=== PATIENT | female | born 1960 | race Caucasian/White ===

== ENCOUNTER 2017-07-20 08:20 | Emergency (ER) | payer OTHER ==
[~2017-07-20 08:20] MED LIST: ANT25 PO; CITA20TA9 PO; HYG/25 PO; LEVO150T48 PO; METO100T44 PO; ONDA4TAB7 SL; SPIR25TA PO
[2017-07-20 08:34] VITALS: O2SAT 97
[2017-07-20] MEDS ORDERED: SUCRALFATE 1 GM TAB PO STA (08:47)
[2017-07-20] MEDS ORDERED: GI COCKTAIL PO STA (08:47)
[2017-07-20] MEDS ORDERED: FAMOTIDINE 20 MG TAB PO STA (08:47)
[2017-07-20 09:02] LABS: BASO % 0.9 %; BASO ABS # 0.07 K/uL (0-0.2); EOS % 4.3 %; EOS ABS # 0.32 K/uL (0-0.5); HEMATOCRIT 40.2 % (37-47); HEMOGLOBIN 13.9 g/dL (12.0-16.0); IG# 0.04 K/uL (0.00-0.02); LYMPH % 28.7 %; LYMPH ABS # 2.12 K/uL (1.2-3.4); MEAN CELL VOLUME 88.9 fL (80-100); MEAN CORPUSCULAR HEMOGLOBIN 30.8 pg (25-34); MEAN CORPUSCULAR HGB CONC 34.6 g/dl (32-36); MEAN PLATELET VOLUME 9.7 fL (7.4-10.4); MONO % 7.8 %; MONO ABS # 0.58 K/uL (0.11-0.59); NEUT % 57.8 %; NEUT ABS # 4.26 K/uL (1.4-6.5); PLATELET COUNT 247 K/uL (130-400); RED CELL DISTRIBUTION WIDTH CV 12.9 % (11.5-14.5); RED CELL DISTRIBUTION WIDTH SD 41.6 fL (36.4-46.3); WHITE BLOOD COUNT 7.39 K/uL (4.8-10.8)
[2017-07-20] MEDS ORDERED: ALUMINUM/MAGNESIUM SUSP 30 ML UDC ONE (09:07)
[2017-07-20] MEDS ORDERED: LIDOCAINE HCL 2% VISC SOLN 20 ML UDC ONE (09:07)
[2017-07-20 09:09] LABS: ISTAT CREATININE 1.3 mg/dl (0.6-1.3); ISTAT IONIZED CALCIUM 1.11 mmol/l (1.12-1.32); ISTAT POTASSIUM 3.1 mEq/L (3.3-5.0)
[2017-07-20 09:13] LABS: ALBUMIN 3.4 gm/dl (3.4-5.0); ALT/SGPT 22 U/L (12-78); BLOOD UREA NITROGEN 18 mg/dl (7-18); CALCIUM 8.8 mg/dl (8.5-10.1); CARBON DIOXIDE 30 mmol/L (21-32); CREATININE 1.26 mg/dl (0.60-1.20); GLUCOSE 103 mg/dl (70-99); LIPASE 199 U/L (73-393); POTASSIUM 3.1 mmol/L (3.5-5.1); SODIUM 138 mmol/L (136-145)
--- NOTE | 2017-07-20 09:14 | DIAGNOSTIC IMAGING REPORT ---
CHEST ONE VIEW PORTABLE CLINICAL HISTORY: CHEST PAIN pain COMPARISON STUDY: 09/02/2014 FINDINGS: Permanent bipolar cardiac pacemaker in good position. Diaphragms smooth. Lungs are clear. IMPRESSION: No acute process. The above report was generated using voice recognition software. It may contain grammatical, syntax or spelling errors. Electronically signed by: Edmundo Lopez M.D. 07/20/2017 9:13 AM Dictated Date/Time: 07/20/2017 9:12 AM
[2017-07-20] MEDS ORDERED: SODIUM CHLORIDE 0.9% 500ML 500 ML IV STA (09:17)
[2017-07-20 09:21] LABS: ALKALINE PHOSPHATASE 89 U/L (45-117); AST/SGOT 17 U/L (15-37); TOTAL PROTEIN 7.6 gm/dl (6.4-8.2)
--- NOTE | 2017-07-20 09:24 | EMERGENCY ROOM VISIT NOTE ---
History Report prepared by Lemuel: Judith Gupta Under the Supervision of: Dr. Erik Urias M.D. First contact with patient: 08:37 Chief Complaint: CHEST PAIN Stated Complaint: LEFT ARM PAIN, CHEST PRESSURE Nursing Triage Summary: pt reports left sided chest "heaviness" started at approx 0630 today. pt reports hx of pace maker. History of Present Illness The patient is a 56 year old female who presents to the Emergency Room with complaints of constant chest pain beginning this morning. The patient states that she was just sitting on the edge of the bed when her symptoms began. She felt a warm tingling sensation throughout her body. She reports a "heavy" feeling in her chest and left arm. She states that her arm felt tired. She rates her pain as a 4/10 in severity. The patient is also experiencing nausea. The patient has a pacemaker in place. She follows up with Dr. Klein of cardiology and last saw him about 3 months ago. She had her pacemaker evaluated last week. The patient had a stress test in 2012 and has previously had a cardiac catheterization but cannot remember what year. She did not have any stents placed at that time. The patient denies any abdominal pain. She last ate at 8pm yesterday evening. She does report falling 3 days ago and states that she landed on her left shoulder at that time. Source of History: patient Onset: this morning Position: chest Symptom Intensity: 4/10 Quality: other (heavy) Timing: constant Associated Symptoms: + nausea, No abdominal pain Review of Systems See HPI for pertinent positives & negatives. A total of 10 systems reviewed and were otherwise negative. Past Medical & Surgical Medical Problems: (1) Cardiac Dysrhythmias Nec (2) Cardiac Pacemaker In Situ (3) HTN (hypertension) (4) Kidney stones Surgical Problems: (1) H/O tubal ligation (2) History of cholecystectomy Family History Heart disease Social History Smoking Status: Never Smoker Alcohol Use: occasionally Marital Status: Housing Status: lives with family Occupation Status: unemployed Current/Historical Medications Scheduled Chlorthalidone (Hygroton), 25 MG PO QAM Citalopram Hydrobromide (Celexa), 20 MG PO DAILY Levothyroxine Sodium (Levothyroxine Sodium), 1 TAB PO DAILY Metoprolol Succ (Toprol Xl) (Toprol-Xl ), 100 MG PO DAILY Spironolactone (Aldactone), 25 MG PO DAILY Scheduled PRN Meclizine HCl (Meclizine HCl), 1 TAB PO Q8 PRN for Dizziness or Vertigo Allergies Coded Allergies: No Known Allergies (Unverified , 07/20/17) Physical Exam Vital Signs Date Time Temp Pulse Resp B/P (MAP) Pulse Ox O2 Delivery O2 Flow Rate FiO2 07/20/17 11:52 36.6 64 18 115/55 99 07/20/17 11:49 64 18 115/55 99 Room Air 07/20/17 10:27 64 18 115/53 99 Room Air 07/20/17 08:59 69 20 158/93 96 Room Air 07/20/17 08:37 69 07/20/17 08:34 97 Room Air 07/20/17 08:33 97 07/20/17 08:23 36.6 72 20 143/88 96 Room Air Physical Exam GENERAL: Awake, alert, well-appearing, in no acute distress HENT: Normocephalic, atraumatic. Oropharynx unremarkable. EYES: Normal conjunctiva. Sclera non-icteric. NECK: Supple. No nuchal rigidity. FROM. No JVD. RESPIRATORY: Clear to auscultation. CARDIAC: Regular rate, normal rhythm. Extremities warm and well perfused. Pulses equal. CHEST: Pacemaker in left chest wall. ABDOMEN: Soft, non-distended. No tenderness to palpation. No rebound or guarding. No masses. RECTAL: Deferred. MUSCULOSKELETAL: Chest examination reveals no tenderness. The back is symmetrical on inspection without obvious abnormality. There is no CVA tenderness to palpation. No joint edema. Tenderness in left shoulder area, good ROM of shoulder. LOWER EXTREMITIES: Calves are equal size bilaterally and non-tender. No edema. No discoloration. NEURO: Normal sensorium. No sensory or motor deficits noted. SKIN: No rash or jaundice noted. Medical Decision & Procedures ER Provider Diagnostic Interpretation: Radiology results as stated below per my review and radiologist interpretation: CHEST ONE VIEW PORTABLE CLINICAL HISTORY: CHEST PAIN pain COMPARISON STUDY: 09/02/2014 FINDINGS: Permanent bipolar cardiac pacemaker in good position. Diaphragms smooth. Lungs are clear. IMPRESSION: No acute process. The above report was generated using voice recognition software. It may contain grammatical, syntax or spelling errors. Electronically signed by: Edmundo Lopez M.D. 07/20/2017 9:13 AM Dictated Date/Time: 07/20/2017 9:12 AM LEFT SHOULDER 3 VIEWS HISTORY: Pt c/o left shoulder pain COMPARISON: None. FINDINGS: Left-sided pacemaker obscures some of the left shoulder. No definite fracture or dislocation within the left shoulder. The left clavicle appears intact. Soft tissues are unremarkable. Mild AC joint arthrosis. IMPRESSION: 1. No fracture or dislocation within the left shoulder. 2. Mild AC joint arthrosis. Electronically signed by: Brandon Sosa M.D. 07/20/2017 10:07 AM Dictated Date/Time: 07/20/2017 10:06 AM (CHEST FOR PE) ANGIO WITH CT DOSE: 594.40 mGy.cm HISTORY: Chest pain dyspnea TECHNIQUE: Multiaxial CT images of the chest were performed following the intravenous administration of contrast to evaluate the pulmonary arteries. Maximal intensity projection images were also obtained. A dose lowering technique was utilized adhering to the principles of ALARA. COMPARISON STUDY: 07/16/2012 FINDINGS: This study again is compromised due to body habitus limitations. No evidence for a major central pulmonary embolus. Second-order vessels appear unremarkable. No evidence for aneurysmal dilatation of the thoracic aorta. Minimal atelectatic change right lung base. Lungs otherwise appear clear. Bipolar cardiac pacemaker leads are evident. Small hiatal hernia. Degenerative change of the thoracic spine throughout. No evidence for compression deformity. IMPRESSION: 1. Compromised exam due to body habitus considerations. 2. No evidence for a central or major pulmonary embolus. 3. Lungs are considered clear. Minimal right basilar atelectasis. 4. Small hiatal hernia. 5. Degenerative disc change throughout the entire thoracic region with no evidence for compression deformity. The above report was generated using voice recognition software. It may contain grammatical, syntax or spelling errors. Electronically signed by: Edmundo Lopez M.D. 07/20/2017 10:28 AM Dictated Date/Time: 07/20/2017 10:24 AM Laboratory Results 07/20/17 08:35 Red Blood Count 4.52, Mean Corpuscular Volume 88.9, Mean Corpuscular Hemoglobin 30.8, Mean Corpuscular Hemoglobin Concent 34.6, Mean Platelet Volume 9.7, Neutrophils (%) (Auto) 57.8, Lymphocytes (%) (Auto) 28.7, Monocytes (%) (Auto) 7.8, Eosinophils (%) (Auto) 4.3, Basophils (%) (Auto) 0.9, Neutrophils # (Auto) 4.26, Lymphocytes # (Auto) 2.12, Monocytes # (Auto) 0.58, Eosinophils # (Auto) 0.32, Basophils # (Auto) 0.07 07/20/17 08:35 Test 07/20/17 08:35 07/20/17 08:55 07/20/17 08:59 07/20/17 10:38 White Blood Count 7.39 K/uL (4.8-10.8) Red Blood Count 4.52 M/uL (4.2-5.4) Hemoglobin 13.9 g/dL (12.0-16.0) Hematocrit 40.2 % (37-47) Mean Corpuscular Volume 88.9 fL (80-100) Mean Corpuscular Hemoglobin 30.8 pg (25-34) Mean Corpuscular Hemoglobin Concent 34.6 g/dl (32-36) Platelet Count 247 K/uL (130-400) Mean Platelet Volume 9.7 fL (7.4-10.4) Neutrophils (%) (Auto) 57.8 % Lymphocytes (%) (Auto) 28.7 % Monocytes (%) (Auto) 7.8 % Eosinophils (%) (Auto) 4.3 % Basophils (%) (Auto) 0.9 % Neutrophils # (Auto) 4.26 K/uL (1.4-6.5) Lymphocytes # (Auto) 2.12 K/uL (1.2-3.4) Monocytes # (Auto) 0.58 K/uL (0.11-0.59) Eosinophils # (Auto) 0.32 K/uL (0-0.5) Basophils # (Auto) 0.07 K/uL (0-0.2) RDW Standard Deviation 41.6 fL (36.4-46.3) RDW Coefficient of Variation 12.9 % (11.5-14.5) Immature Granulocyte % (Auto) 0.5 % Immature Granulocyte # (Auto) 0.04 K/uL (0.00-0.02) Estimated GFR () 54.8 Estimated GFR (Non- 47.3 BUN/Creatinine Ratio 14.4 (10-20) Calcium Level 8.8 mg/dl (8.5-10.1) Total Bilirubin 0.4 mg/dl (0.2-1) Direct Bilirubin 0.1 mg/dl (0-0.2) Aspartate Amino Transf (AST/SGOT) 17 U/L (15-37) Alanine Aminotransferase (ALT/SGPT) 22 U/L (12-78) Alkaline Phosphatase 89 U/L (45-117) Total Creatine Kinase 176 U/L (26-192) Creatine Kinase MB 1.0 ng/ml (0.5-3.6) Creatine Kinase MB Ratio 0.6 (0-3.0) Troponin I < 0.015 ng/ml (0-0.045) Total Protein 7.6 gm/dl (6.4-8.2) Albumin 3.4 gm/dl (3.4-5.0) Lipase 199 U/L (73-393) Bedside Hemoglobin 13.9 g/dl (12.0-16.0) Bedside Hematocrit 41 % (37-47) Bedside Sodium 141 mEq/L (135-144) Bedside Potassium 3.1 mEq/L (3.3-5.0) Bedside Chloride 99 mEq/L (101-112) Bedside Total CO2 30 mEq/l (24-31) Anion Gap 16.0 mmol/L (16-25) Bedside Blood Urea Nitrogen 20 mg/dl (7-18) Bedside Creatinine 1.3 mg/dl (0.6-1.3) Bedside Glucose (other) 105 mg/dl (70-99) Bedside Ionized Calcium (Krunal) 1.11 mmol/l (1.12-1.32) Bedside D-Dimer > 450 ng/mlFEU (0-450) Bedside Troponin I < 0.030 ng/ml (0-0.045) Labs reviewed by ED physician. Medications Administered Medications (Trade) Dose Ordered Sig/Cyndi Route Start Time Stop Time Status Last Admin Dose Admin Famotidine (Pepcid Tab) 20 mg NOW STAT PO 07/20/17 08:47 07/20/17 08:51 DC 07/20/17 09:09 20 MG Sucralfate (Carafate Tab) 1 gm NOW STAT PO 07/20/17 08:47 07/20/17 08:51 DC 07/20/17 09:09 1 GM Al Hydroxide/Mg Hydroxide (Maalox Susp) 30 ml STK-MED ONCE .ROUTE 07/20/17 09:07 07/20/17 09:08 DC 07/20/17 09:09 30 ML Lidocaine HCl (Viscous Lidocaine 2% Soln) 20 ml STK-MED ONCE .ROUTE 07/20/17 09:07 07/20/17 09:08 DC 07/20/17 09:09 10 ML Sodium Chloride 500 ml @ 999 mls/hr Q31M STAT IV 07/20/17 09:17 07/20/17 09:47 DC 07/20/17 09:26 999 MLS/HR Potassium Chloride (Klor-Con Tab) 40 meq NOW STAT PO 07/20/17 09:35 07/20/17 09:36 DC 07/20/17 10:01 40 MEQ Potassium Chloride (Klor-Con M10) 40 meq STK-MED ONCE .ROUTE 07/20/17 11:27 07/20/17 11:28 DC 07/20/17 11:33 40 MEQ ECG Per My Interpretation Indication: chest pain Rate (beats per minute): 66 Rhythm: other (paced rhythm) Findings: other (no ST elevation; no ST depression) Comparison ECG Date: July 20, 2017 (previous ECG) Change: no significant change ED Course 0837: Past medical records reviewed. The patient was evaluated in room A11B. A complete history and physical examination was performed. 0847: Carafate tab 1 gm PO, Pepcid tab 20 mg PO, GI cocktail 24 ml PO 0917: NSS 500 ml @ 999 mls/hr IV 0935: Potassium Chloride 40 meq PO 1109: Potassium Chloride 40 meq PO 1117: I reassessed the patient at this time. She is feeling better and resting comfortably. I discussed the results and treatment plan with the patient. I answered all pertaining questions that she had. She expressed understanding and verbalized agreement. The patient will be discharged home. Medical Decision Differential diagnosis: Etiologies such as cardiac ischemia, aortic dissection, pulmonary embolism, pneumonia, pneumothorax, musculoskeletal, infections, pericarditis, myocarditis , esophageal rupture, gastrointestinal, as well as others were entertained. This is a 56-year-old female who presents to the emergency department complaining of left shoulder pain. The patient had a fall earlier and has been complaining of left shoulder and arm pain since then. She denies any chest or shoulder pain. In addition the patient does not have an abnormal EKG and has no troponin. I will note that the symptoms have been ongoing for the past several days and that if this were related to her heart I would expect her troponin to be elevated. As such it is not. I do feel the patient is well enough to be discharged home. I did recommend a sling for the patient. She was given Pepcid Carafate and GI cocktail in the emergency department. I recommended follow-up with both cardiology as well as orthopedics for this patient. Patient was in agreement with the treatment plan. Medication Reconcilliation Current Medication List: was personally reviewed by me Blood Pressure Screening Patient's blood pressure: Elevated blood pressure Blood pressure disposition: Elevated BP felt to be situational Impression Primary Impression: Shoulder pain, left Scribe Attestation The scribe's documentation has been prepared under my direction and personally reviewed by me in its entirety. I confirm that the note above accurately reflects all work, treatment, procedures, and medical decision making performed by me. Departure Information Dispostion Home / Self-Care Referrals No Doctor, Assigned (PCP) Steven Grove D.O. Bradbury, James J., D.O. Lavery, Doriann M.D. Forms Call Back Authorization, HOME CARE DOCUMENTATION FORM, IMPORTANT VISIT INFORMATION Patient Instructions ED Shoulder Pain [facility], ED Sling, My [facility] Additional Instructions Follow up with DR Grove's office for shoulder pain Follow up with DR Klein's office (No strenuous activity until follow up) You have been examined and treated today on an emergency basis only. This is not a substitute for, or an effort to provide, complete comprehensive medical care. It is impossible to recognize and treat all injuries or illnesses in a single emergency department visit. It is therefore important that you follow up closely with your PCP. Call as soon as possible for an appointment. Thank you for your time and consideration. I look forward to speaking with you again soon. Please don't hesitate to call us if you have any questions. Problem Qualifiers Primary Impression: Shoulder pain, left Chronicity: acute Qualified Codes: M25.512 - Pain in left shoulder
[2017-07-20] MEDS ORDERED: OPTIRAY 320 IV PRN (09:30)
[2017-07-20] MEDS ORDERED: POTASSIUM CHLORIDE 20 MEQ TABCR PO STA ×2 (09:35→11:09)
[2017-07-20] MEDS ORDERED: LEVO150T9 PO (09:46)
--- NOTE | 2017-07-20 10:09 | DIAGNOSTIC IMAGING REPORT ---
LEFT SHOULDER 3 VIEWS HISTORY: Pt c/o left shoulder pain COMPARISON: None. FINDINGS: Left-sided pacemaker obscures some of the left shoulder. No definite fracture or dislocation within the left shoulder. The left clavicle appears intact. Soft tissues are unremarkable. Mild AC joint arthrosis. IMPRESSION: 1. No fracture or dislocation within the left shoulder. 2. Mild AC joint arthrosis. Electronically signed by: Brandon Sosa M.D. 07/20/2017 10:07 AM Dictated Date/Time: 07/20/2017 10:06 AM
--- NOTE | 2017-07-20 10:29 | DIAGNOSTIC IMAGING REPORT ---
(CHEST FOR PE) ANGIO WITH CT DOSE: 594.40 mGy.cm HISTORY: Chest pain dyspnea TECHNIQUE: Multiaxial CT images of the chest were performed following the intravenous administration of contrast to evaluate the pulmonary arteries. Maximal intensity projection images were also obtained. A dose lowering technique was utilized adhering to the principles of ALARA. COMPARISON STUDY: 07/16/2012 FINDINGS: This study again is compromised due to body habitus limitations. No evidence for a major central pulmonary embolus. Second-order vessels appear unremarkable. No evidence for aneurysmal dilatation of the thoracic aorta. Minimal atelectatic change right lung base. Lungs otherwise appear clear. Bipolar cardiac pacemaker leads are evident. Small hiatal hernia. Degenerative change of the thoracic spine throughout. No evidence for compression deformity. IMPRESSION: 1. Compromised exam due to body habitus considerations. 2. No evidence for a central or major pulmonary embolus. 3. Lungs are considered clear. Minimal right basilar atelectasis. 4. Small hiatal hernia. 5. Degenerative disc change throughout the entire thoracic region with no evidence for compression deformity. The above report was generated using voice recognition software. It may contain grammatical, syntax or spelling errors. Electronically signed by: Edmundo Lopez M.D. 07/20/2017 10:28 AM Dictated Date/Time: 07/20/2017 10:24 AM
[2017-07-20] MEDS ORDERED: POTASSIUM CHLORIDE 10 MEQ TABCR ONE (11:27)
[2017-07-20 11:52] VITALS: BP 115/55; PULSE 64; TEMP 36.6; O2SAT 99
== END 2017-07-20 11:53 | disposition home or self-care (01) ==
LOC: C.EDB 08:22 → C.EDA 11:53
DX: M25.512 Pain in left shoulder (principal); I10 Essential (primary) hypertension; Z87.442 Personal history of urinary calculi; Z91.81 History of falling; Z95.0 Presence of cardiac pacemaker; Z98.51 Tubal ligation status; Z90.89 Acquired absence of other organs; Z98.890 Other specified postprocedural states; Z79.899 Other long term (current) drug therapy

== ENCOUNTER 2018-08-23 06:46 | Inpatient (IN) ==
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
[~2018-08-23 06:46] MED LIST changes: -ANT25 PO; -CITA20TA9 PO; -HYG/25 PO; -LEVO150T48 PO; +LR 15ML/HR IV SCH; -METO100T44 PO; -ONDA4TAB7 SL; -SPIR25TA PO
--- NOTE | 2018-08-23 08:42 | History & Physical Bridge Note ---
Date of Service August 23, 2018 History & Physical Bridge Note I have examined the patient, reviewed the History & Physical and in the interval since the performance of the History & Physical I have noted the following changes of clinical significance: no changes noted
[2018-08-23] MEDS ORDERED: DEXAMETHASONE SOD INJ 4 MG/ML VIAL ONE (08:47)
[2018-08-23] MEDS ORDERED: PROPOFOL IV EMULSION 10 MG/ML 20 ML VIAL IV ONE (08:47)
[2018-08-23] MEDS ORDERED: ONDANSETRON INJ 2 MG/ML 2 ML VIAL ONE (08:47)
[2018-08-23] MEDS ORDERED: LIDOCAINE HCL 2% 2 ML VIAL/AMP(20MG/ML) INFIL ONE ×2 (08:47→10:18)
[2018-08-23] MEDS ORDERED: MIDAZOLAM HCL 1 MG/ML 2ML VIAL ONE (08:47)
[2018-08-23] MEDS ORDERED: fentaNYL citrate 100 MCG/2 ML VIAL ONE (08:47)
[2018-08-23] MEDS ORDERED: ATROPINE SULFATE 0.1 MG/ML 10ML SYR IV PRN (09:27)
[2018-08-23] MEDS ORDERED: ONDANSETRON INJ 2 MG/ML 2 ML VIAL IV PRN ×2 (09:27→12:28)
[2018-08-23] MEDS ORDERED: ePHEDrine sulfate 50 MG/ML AMP IV PRN (09:27)
[2018-08-23] MEDS ORDERED: fentaNYL citrate 100 MCG/2 ML VIAL IV PRN (09:27)
[2018-08-23] MEDS ORDERED: BACITRACIN INJ 50,000 UNIT VIAL ONE (09:48)
[2018-08-23] MEDS ORDERED: SUCCINYLCHOLINE CHLORIDE 20 MG/ML 10 ML VIAL ONE (10:18)
[2018-08-23] MEDS ORDERED: ROCURONIUM BROMIDE 10 MG/ML 5 ML VIAL ONE (10:18)
[2018-08-23] MEDS ORDERED: CEFAZOLIN 250 MG/ML 1 GM VIAL ONE (10:21)
[2018-08-23] MEDS ORDERED: CEFAZOLIN 2000MG 2,000 MG/15 ML SYR IV ONE (10:30)
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
--- NOTE | 2018-08-23 12:00 | Anesthesiology Progress Note ---
Date of Service August 23, 2018 Anesthesia Post Procedure Vital Signs Vital Signs: Temp Pulse Pulse Resp BP Pulse Ox 08/23/18 11:45 36.3 C L 63 18 140/78 99 08/23/18 11:35 64 17 123/74 96 08/23/18 11:25 67 13 132/80 94 08/23/18 11:15 66 13 134/69 98 08/23/18 11:05 84 18 114/86 95 08/23/18 10:58 36.3 C L 70 18 148/92 H 95 08/23/18 07:35 36.4 C L 74 18 120/83 99 Pain Intensity Right Leg: Pain Intensity: 4 Right Knee: Pain Intensity: 3 Notes Mental Status: alert / awake / arousable and participated in evaluation Patient Amnestic to Procedure: Yes Nausea / Vomiting: adequately controlled Pain: adequately controlled Airway Patency, RR, SpO2: stable & adequate BP & HR: stable & adequate Hydration State: stable & adequate Anesthetic Complications: no major complications apparent and Pt Satisfied with anesthetic care
[2018-08-23] MEDS ORDERED: HYDROmorphone INJ 0.5 MG/0.5 ML SYR IV PRN (12:28)
[2018-08-23] MEDS ORDERED: BISACODYL 10 MG SUPP PR PRN (12:28)
[2018-08-23] MEDS ORDERED: MECLIZINE HCL 25 MG TAB PO PRN (12:28)
[2018-08-23] MEDS ORDERED: MAGNESIUM HYDROXIDE SUSP 30 ML UDC PO PRN (12:28)
[2018-08-23] MEDS ORDERED: NALOXONE HCL 0.4 MG/1 ML VIAL/CARP IV PRN (12:28)
[2018-08-23] MEDS ORDERED: SODIUM CHLORIDE 0.9% 1000ML 1,000 ML IV SCH (13:00)
[2018-08-23] MEDS: ACETAMINOPHEN 500 MG TAB PO SCH ×2 (15:01→21:08)
[2018-08-23] MEDS: CEFAZOLIN 2000MG 2,000 MG/15 ML SYR IV SCH (18:17)
[2018-08-23] MEDS: SENNA 8.6 MG TAB PO SCH (21:08)
[2018-08-23] MEDS: DOCUSATE SODIUM 100 MG CAP PO SCH (21:08)
[2018-08-23] MEDS: ASPIRIN 81 MG ECTAB PO SCH (21:08)
[2018-08-24] MEDS: CEFAZOLIN 2000MG 2,000 MG/15 ML SYR IV SCH ×3 (02:03→19:33)
[2018-08-24] MEDS: LEVOTHYROXINE SODIUM 150 MCG TABLET PO SCH (05:10)
[2018-08-24] MEDS: ACETAMINOPHEN 500 MG TAB PO SCH ×3 (05:10→21:10)
[2018-08-24 06:10] LABS: Hematocrit (blood only) 36.8 % (37-47); Hemoglobin 12.2 g/dL (12.0-16.0); Mean Corpuscular Hgb Conc 33.2 g/dL (32-36); Mean Corpuscular Volume 87.8 fL (80-100); Mean Platelet Volume 9.7 fL (7.4-10.4); Platelet Count 224 K/uL (130-400); RDW Coefficient of Variation 12.7 % (11.5-14.5); RDW Standard Deviation 40.8 fL (36.4-46.3); Red Blood Count 4.19 M/uL (4.2-5.4); White Blood Count 9.53 K/uL (4.8-10.8)
[2018-08-24 06:37] LABS: BUN Creatinine Ratio 18.3 (10-20); Calcium 8.6 mg/dl (8.5-10.1); Creatinine Clr Calc Pharmacy 74.2 ml/min; Est GFR (African American) 55.4; Est GFR (Non-African American) 47.8; Potassium 3.8 mmol/L (3.5-5.1)
[2018-08-24] MEDS: OXYCODONE HCL IR 5 MG TAB (IMMEDIATE RELEASE) PO PRN ×2 (07:38→21:18)
[2018-08-24] MEDS: SPIRONOLACTONE 25 MG TAB PO SCH (07:39)
[2018-08-24] MEDS: ASPIRIN 81 MG ECTAB PO SCH ×2 (07:39→21:09)
[2018-08-24] MEDS: CHLORTHALIDONE 25 MG TAB PO SCH (07:40)
[2018-08-24] MEDS: CITALOPRAM 40 MG TAB PO SCH (07:40)
[2018-08-24] MEDS: MULTIVITAMIN TAB PO SCH (07:41)
[2018-08-24] MEDS: DOCUSATE SODIUM 100 MG CAP PO SCH ×2 (07:41→21:09)
[2018-08-24] MEDS: METOPROLOL SUCC 50MG EXT REL TAB PO SCH (07:41)
--- NOTE | 2018-08-24 07:55 | Anesthesiology Progress Note ---
Date of Service August 24, 2018 Anesthesia Post Procedure Vital Signs Vital Signs: Temp Pulse Pulse Resp BP Pulse Ox 08/24/18 07:24 36.8 C 62 16 108/63 98 08/24/18 02:16 36.8 C 59 L 16 121/66 95 08/23/18 22:52 37.0 C 73 16 127/67 95 08/23/18 20:31 36.6 C 71 20 156/74 H 93 08/23/18 15:33 36.8 C 63 16 118/64 94 08/23/18 14:13 69 16 136/77 93 08/23/18 13:05 63 16 117/73 94 08/23/18 12:44 60 16 141/71 H 98 08/23/18 12:15 36.4 C L 62 16 119/72 97 08/23/18 11:45 36.3 C L 63 18 140/78 99 08/23/18 11:35 64 17 123/74 96 08/23/18 11:25 67 13 132/80 94 08/23/18 11:15 66 13 134/69 98 08/23/18 11:05 84 18 114/86 95 08/23/18 10:58 36.3 C L 70 18 148/92 H 95 Pain Intensity Right Leg: Pain Intensity: 4 Right Knee: Pain Intensity: 3 Notes Mental Status: alert / awake / arousable and participated in evaluation Patient Amnestic to Procedure: Yes Nausea / Vomiting: adequately controlled Pain: adequately controlled Airway Patency, RR, SpO2: stable & adequate BP & HR: stable & adequate Hydration State: stable & adequate Anesthetic Complications: no major complications apparent and Pt Satisfied with anesthetic care
--- NOTE | 2018-08-24 11:38 | Orthopedic Progress Note ---
Date of Service August 24, 2018 Assessment & Plan (1) Wound dehiscence: Tends to be to continue to pull packing daily. Follow cultures. Continue IV antibiotics. She can be up weightbearing as tolerated on the right lower extremity with immobilizer. Subjective Postop day 1 status post I&D right knee wound Patient is sitting up in bed awake and alert. She has no complaints. Pain is controlled. Physical Exam Physical Exam: Dressings were removed from the right knee. She did not have a lot of drainage on the dressing. Approximately 10 inches of packing was removed from the knee wound itself. No purulence noted at this time. Wound edges appear benign. Wound was redressed with Adaptic, 4 x 4's, ABDs and Da wrap. Results & Data Vital Signs (Past 12 Hours) Vital Signs Temp Pulse Pulse Resp BP Pulse Ox 08/24/18 07:24 36.8 C 62 16 108/63 98 08/24/18 02:16 36.8 C 59 L 16 121/66 95 Laboratory Results Microbiology 08/23/18 10:27 Knee,Right Gram Stain - Final Rare Gram + cocci noted. Laboratory Results WBC 9.53 K/uL (4.8-10.8) 08/24/18 05:49 RBC 4.19 M/uL (4.2-5.4) L 08/24/18 05:49 Hgb 12.2 g/dL (12.0-16.0) 08/24/18 05:49 Hct 36.8 % (37-47) L 08/24/18 05:49 MCV 87.8 fL (80-100) 08/24/18 05:49 MCH 29.1 pg (25-34) 08/24/18 05:49 MCHC 33.2 g/dL (32-36) 08/24/18 05:49 RDW Std Deviation 40.8 fL (36.4-46.3) 08/24/18 05:49 RDW Coeff of Althea 12.7 % (11.5-14.5) 08/24/18 05:49 Plt Count 224 K/uL (130-400) 08/24/18 05:49 MPV 9.7 fL (7.4-10.4) 08/24/18 05:49 Sodium 137 mmol/L (136-145) 08/24/18 05:49 Potassium 3.8 mmol/L (3.5-5.1) 08/24/18 05:49 Chloride 103 mmol/L (98-107) 08/24/18 05:49 Carbon Dioxide 29 mmol/L (21-32) 08/24/18 05:49 Anion Gap 5.0 (3-11) 08/24/18 05:49 BUN 23 mg/dl (7-18) H 08/24/18 05:49 Creatinine 1.24 mg/dl (0.6-1.2) H 08/24/18 05:49 Est Cr Clr Drug Dosing 74.2 ml/min 08/24/18 05:49 Est GFR ( Amer) 55.4 08/24/18 05:49 Est GFR (Non-Af Amer) 47.8 08/24/18 05:49 BUN/Creatinine Ratio 18.3 (10-20) 08/24/18 05:49 Glucose 137 mg/dl (70-99) H 08/24/18 05:49 Calcium 8.6 mg/dl (8.5-10.1) 08/24/18 05:49 Hepatitis C Ab Screen Neg (Neg) 08/24/18 05:49
[2018-08-24] MEDS: SENNA 8.6 MG TAB PO SCH (21:09)
[2018-08-25] MEDS: CEFAZOLIN 2000MG 2,000 MG/15 ML SYR IV SCH ×3 (01:28→21:23)
[2018-08-25] MEDS: OXYCODONE HCL IR 5 MG TAB (IMMEDIATE RELEASE) PO PRN ×3 (01:28→21:27)
[2018-08-25] MEDS: ACETAMINOPHEN 500 MG TAB PO SCH ×3 (06:05→21:24)
[2018-08-25] MEDS: LEVOTHYROXINE SODIUM 150 MCG TABLET PO SCH (06:05)
[2018-08-25] MEDS: ASPIRIN 81 MG ECTAB PO SCH ×2 (08:53→21:25)
[2018-08-25] MEDS: MULTIVITAMIN TAB PO SCH ×2 (08:53→09:05)
[2018-08-25] MEDS: DOCUSATE SODIUM 100 MG CAP PO SCH ×2 (08:54→21:23)
[2018-08-25] MEDS: SPIRONOLACTONE 25 MG TAB PO SCH (08:54)
[2018-08-25] MEDS: CITALOPRAM 40 MG TAB PO SCH (08:54)
[2018-08-25] MEDS: CHLORTHALIDONE 25 MG TAB PO SCH (09:04)
[2018-08-25] MEDS: METOPROLOL SUCC 50MG EXT REL TAB PO SCH (09:04)
--- NOTE | 2018-08-25 09:13 | Orthopedic Progress Note ---
Date of Service August 25, 2018 Assessment & Plan (1) Wound dehiscence: Continue to remove packing at this time. Follow cultures. Continue IV antibiotics. She can be up weightbearing as tolerated on the right lower extremity with immobilizer. Subjective Patient is postop day 2 status post I&D right knee wound She is sitting up at the bedside finishing her breakfast. She is able to get back in the bed on her own power. She has no complaints this morning. Pain is controlled. Physical Exam Physical Exam: Dressings were removed. Minimal drainage was noted. No overt erythema. 10 inches of packing was removed from the wound. No overt drainage when packing removed. Wound redressed with 4 x 4's, ABDs and Da wrap. Results & Data Vital Signs (Past 12 Hours) Vital Signs Temp Pulse Resp BP Pulse Ox 08/25/18 09:02 67 132/73 08/25/18 07:42 36.7 C 61 16 110/68 96 08/24/18 22:44 36.6 C 60 16 118/66 95
[2018-08-25] MEDS: SENNA 8.6 MG TAB PO SCH (21:23)
[2018-08-26] MEDS: ACETAMINOPHEN 500 MG TAB PO SCH ×3 (05:10→20:47)
[2018-08-26] MEDS: LEVOTHYROXINE SODIUM 150 MCG TABLET PO SCH (05:10)
[2018-08-26] MEDS: CEFAZOLIN 2000MG 2,000 MG/15 ML SYR IV SCH ×3 (05:10→20:47)
[2018-08-26] MEDS: ASPIRIN 81 MG ECTAB PO SCH ×2 (08:51→20:47)
[2018-08-26] MEDS: DOCUSATE SODIUM 100 MG CAP PO SCH ×2 (08:51→20:47)
[2018-08-26] MEDS: CITALOPRAM 40 MG TAB PO SCH (08:51)
[2018-08-26] MEDS: MULTIVITAMIN TAB PO SCH (08:51)
[2018-08-26] MEDS: SPIRONOLACTONE 25 MG TAB PO SCH (08:52)
[2018-08-26] MEDS: METOPROLOL SUCC 50MG EXT REL TAB PO SCH (08:52)
[2018-08-26] MEDS: CHLORTHALIDONE 25 MG TAB PO SCH (08:52)
--- NOTE | 2018-08-26 10:08 | Orthopedic Progress Note ---
Date of Service August 26, 2018 Assessment & Plan (1) Wound dehiscence: Packing removed. Follow cultures-growing gram positive cocci, sensitivities pending. Continue IV antibiotics. She can be up weightbearing as tolerated on the right lower extremity with immobilizer. D/C planning likely home tomorrow on PO antibiotics pending final cultures. Subjective Patient is postop day 3 status post I&D right knee wound She is sitting up at the bedside. She is able to get back in the bed on her own power. She has no complaints this morning. Pain is controlled. Physical Exam Physical Exam: Dressing was removed. Minimal drainage onto dressing at packing site. Remainder of packing was removed. New dressing applied. Sensation to LE intact, toes mobile. No calf tenderness Results & Data Vital Signs (Past 12 Hours) Vital Signs Temp Pulse Resp BP Pulse Ox 08/26/18 07:37 36.5 C 65 20 123/77 96 08/25/18 23:06 36.8 C 63 14 113/64 95
[2018-08-26] MEDS: OXYCODONE HCL IR 5 MG TAB (IMMEDIATE RELEASE) PO PRN ×2 (14:02→20:47)
[2018-08-26] MEDS: SENNA 8.6 MG TAB PO SCH (20:47)
[2018-08-27] MEDS: OXYCODONE HCL IR 5 MG TAB (IMMEDIATE RELEASE) PO PRN ×3 (00:56→15:49)
[2018-08-27] MEDS: CEFAZOLIN 2000MG 2,000 MG/15 ML SYR IV SCH ×3 (04:57→12:01)
[2018-08-27] MEDS: LEVOTHYROXINE SODIUM 150 MCG TABLET PO SCH (06:27)
[2018-08-27] MEDS: ACETAMINOPHEN 500 MG TAB PO SCH ×2 (06:27→14:10)
--- NOTE | 2018-08-27 07:52 | Orthopedic Progress Note ---
Date of Service August 27, 2018 Assessment & Plan (1) Wound dehiscence: Dressing changed today. Follow cultures-growing gram positive cocci, sensitivities pending. Continue IV antibiotics. She can be up weightbearing as tolerated on the right lower extremity with immobilizer. D/C planning possibly home later today on PO antibiotics pending final cultures. Subjective Patient is postop day 4 status post I&D right knee wound She is sitting up at the bedside. She is able to get back in the bed on her own power. She has no complaints this morning. Pain is controlled. Physical Exam Physical Exam: Mild serous drainage on dressing. Dressing changed today. Sensation and n/v status intact. Incision well approximated. Granulation tissue lateral wound. Results & Data Vital Signs (Past 12 Hours) Vital Signs Temp Pulse Resp BP Pulse Ox 08/27/18 07:20 36.8 C 64 17 132/76 97 08/26/18 23:02 36.9 C 61 14 115/66 97
[2018-08-27] MEDS: DOCUSATE SODIUM 100 MG CAP PO SCH (07:59)
[2018-08-27] MEDS: METOPROLOL SUCC 50MG EXT REL TAB PO SCH (07:59)
[2018-08-27] MEDS: CITALOPRAM 40 MG TAB PO SCH (08:00)
[2018-08-27] MEDS: SPIRONOLACTONE 25 MG TAB PO SCH (08:00)
[2018-08-27] MEDS: CHLORTHALIDONE 25 MG TAB PO SCH (08:00)
[2018-08-27] MEDS: ASPIRIN 81 MG ECTAB PO SCH ×2 (08:00→15:49)
[2018-08-27] MEDS: MULTIVITAMIN TAB PO SCH (10:14)
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
--- NOTE | 2018-08-28 09:49 | Discharge Summary ---
Date of Service August 30, 2018 Discharge Data Consultations 08/23/18 12:28 Consult Case Management - Discharge Planning Routine Procedures Performed Operation Date: 06/20/18 11:55 <No data on this case meets the specified criteria> Operation Date: 08/23/18 09:20 Actual Procedures p Right Knee Incision and Drainage of Laceration, Wound Dehisence(Right) - Hernesto Carrillo DO
--- NOTE | 2018-08-29 03:37 | Discharge Summary ---
DISCHARGE DIAGNOSIS: Right knee wound dehiscence. SECONDARY DIAGNOSES: Hypertension, renal calculi, hypothyroidism, obstructive sleep apnea, pacemaker insertion, anxiety, skin cancer, depression, vertigo. CONSULTS: None. COMPLICATIONS: None. PROCEDURES: Right knee I&D of laceration wound dehiscence with packing of iodoform gauze on 08/23/[address] Carrillo. BRIEF HISTORY: As dictated in history and physical. HOSPITAL SUMMARY: The patient was admitted on the above date and had the above-noted surgery performed which she tolerated well. The patient was started on IV antibiotics postoperatively and on her first postoperative date, she was seen at the bedside, sitting up in bed, awake and alert. She had no complaints. Pain is controlled. Vital signs were stable. She was afebrile. Dressings were removed and she did not have a lot of drainage on the dressing, 10 inches of iodoform packing was removed from the knee itself. There was no purulence noted at this time. The wound edges appeared benign and was redressed. The patient was continued on weightbearing as tolerated and continued on IV antibiotics and following cultures. Over the next several days, packing was continued to be removed. The remainder of the packing was finally removed on the , new dressings applied. Toes were mobile. Calves were nontender and vital signs remained stable. Cultures had showed the gram positive cocci. Previous cultures that she had showed coag negative staph. By 08/27/2018, culture came back Zaidldia magna. Eh Farris PA-C discussed the case with Dr. Barrientos for plans for antibiotics to go home on. At that time, Augmentin was chosen. She was otherwise remaining stable and it was felt she could be discharged to home on 08/27/2018. For further review, please see chart. LABORATORY AND X-RAY DATA: As per chart. DISCHARGE INSTRUCTIONS: The patient was discharged home in satisfactory condition on 08/27/2018. DIET: Regular. ACTIVITY: Follow instructions as per instruction care section and special precautions. Follow up with Dr. Carrillo in 1 week. The patient to call for appointment if one has not been made for you. DISCHARGE MEDICATIONS: Augmentin 1 tab p.o. b.i.d., aspirin 81 mg p.o. b.i.d., Percocet 1-2 tabs p.o. q.4-6 hours p.r.n. Resume home meds as listed and stop taking cephalexin and previous oxycodone tablet.
== END 2018-08-27 16:10 | disposition home or self-care (01) | DRG 908 ==
LOC: ASU 06:46 → 3E 11:12

== ENCOUNTER 2018-09-01 10:20 | Inpatient (IN) ==
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
[2018-09-01] MEDS ORDERED: ONDANSETRON INJ 2 MG/ML 2 ML VIAL IV PRN ×2 (12:20→17:16)
[2018-09-01] MEDS ORDERED: HYDROmorphone INJ 0.5 MG/0.5 ML SYR IV PRN ×2 (12:22→18:29)
[2018-09-01] MEDS ORDERED: SODIUM CHLORIDE 0.9% 1000ML 1,000 ML IV SCH (12:30)
[2018-09-01 13:30] LABS: Basophils # (auto) 0.06 K/uL (0-0.2); Basophils % (auto) 0.8 %; Eosinophils # (auto) 0.24 K/uL (0-0.5); Eosinophils % (auto) 3.3 %; Hematocrit (blood only) 40.3 % (37-47); Hemoglobin 13.5 g/dL (12.0-16.0); Immature Granulocytes # (auto) 0.03 K/uL (0.00-0.02); Immature Granulocytes % (auto) 0.4 %; Lymphocytes # (auto) 1.87 K/uL (1.2-3.4); Lymphocytes % (auto) 26.1 %; Mean Corpuscular Hgb Conc 33.5 g/dL (32-36); Mean Corpuscular Volume 87.8 fL (80-100); Mean Platelet Volume 9.8 fL (7.4-10.4); Monocytes # (auto) 0.62 K/uL (0.11-0.59); Monocytes % (auto) 8.6 %; Neutrophils # (auto) 4.35 K/uL (1.4-6.5); Neutrophils % (auto) 60.8 %; Platelet Count 236 K/uL (130-400); RDW Coefficient of Variation 13.7 % (11.5-14.5); RDW Standard Deviation 43.5 fL (36.4-46.3); Red Blood Count 4.59 M/uL (4.2-5.4); White Blood Count 7.17 K/uL (4.8-10.8)
[2018-09-01 13:40] LABS: BUN Creatinine Ratio 14.8 (10-20); Calcium 9.3 mg/dl (8.5-10.1); Creatinine Clr Calc Pharmacy 74.3 ml/min; Est GFR (African American) 56.2; Est GFR (Non-African American) 48.5; Potassium 3.6 mmol/L (3.5-5.1)
[2018-09-01] MEDS ORDERED: MIDAZOLAM HCL 1 MG/ML 2ML VIAL ONE (15:45)
[2018-09-01] MEDS ORDERED: fentaNYL citrate 100 MCG/2 ML VIAL ONE (15:45)
[2018-09-01] MEDS ORDERED: PROPOFOL IV EMULSION 10 MG/ML 20 ML VIAL IV ONE ×2 (15:49→17:05)
[2018-09-01] MEDS ORDERED: LIDOCAINE HCL 2% 2 ML VIAL/AMP(20MG/ML) INFIL ONE (15:49)
[2018-09-01] MEDS ORDERED: ONDANSETRON INJ 2 MG/ML 2 ML VIAL ONE (15:49)
--- NOTE | 2018-09-01 15:52 | History & Physical Bridge Note ---
Date of Service September 01, 2018 History & Physical Bridge Note I have examined the patient, reviewed the History & Physical and in the interval since the performance of the History & Physical I have noted the following changes of clinical significance: no changes noted
[2018-09-01] MEDS ORDERED: BACITRACIN INJ 50,000 UNIT VIAL ONE (16:06)
[2018-09-01] MEDS ORDERED: POVIDONE-IODINE OP SOLN 30 ML BTL ONE (16:07)
[2018-09-01] MEDS ORDERED: CEFAZOLIN 3000MG/72.5 ML BAG IV ONE (16:41)
[2018-09-01] MEDS ORDERED: SUCCINYLCHOLINE CHLORIDE 20 MG/ML 10 ML VIAL ONE (17:05)
[2018-09-01] MEDS ORDERED: fentaNYL citrate 100 MCG/2 ML VIAL IV PRN (17:16)
[2018-09-01] MEDS ORDERED: ePHEDrine sulfate 50 MG/ML AMP IV PRN (17:16)
[2018-09-01] MEDS ORDERED: ATROPINE SULFATE 0.1 MG/ML 10ML SYR IV PRN (17:16)
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
--- NOTE | 2018-09-01 18:14 | Anesthesiology Progress Note ---
Date of Service September 01, 2018 Anesthesia Post Procedure Vital Signs Vital Signs: Temp Pulse Pulse Resp BP Pulse Ox 09/01/18 18:05 67 20 138/75 99 09/01/18 17:55 73 16 126/70 99 09/01/18 17:45 69 22 123/72 99 09/01/18 17:36 36.2 C L 75 18 104/68 98 09/01/18 16:38 60 18 138/68 96 09/01/18 15:07 36.7 C 68 18 120/71 96 Pain Intensity Right Leg: Pain Intensity: 3 Notes Mental Status: alert / awake / arousable Patient Amnestic to Procedure: Yes Nausea / Vomiting: adequately controlled Pain: adequately controlled Airway Patency, RR, SpO2: stable & adequate BP & HR: stable & adequate Hydration State: stable & adequate Anesthetic Complications: no major complications apparent
[2018-09-01] MEDS ORDERED: NALOXONE HCL 0.4 MG/1 ML VIAL/CARP IV PRN (18:29)
[2018-09-01] MEDS ORDERED: BISACODYL 10 MG SUPP PR PRN (18:29)
[2018-09-01] MEDS ORDERED: OXYCODONE HCL IR 5 MG TAB (IMMEDIATE RELEASE) PO PRN (18:29)
[2018-09-01] MEDS ORDERED: MAGNESIUM HYDROXIDE SUSP 30 ML UDC PO PRN (18:29)
[2018-09-01] MEDS: SODIUM CHLORIDE 0.9% 1000ML 1,000 ML IV SCH (19:19)
[2018-09-01] MEDS ORDERED: DiphenhydrAMINE HCL 50 MG/ML VIAL IV STA (20:37)
[2018-09-01] MEDS ORDERED: DiphenhydrAMINE HCL 50 MG/ML VIAL ONE (20:40)
[2018-09-01] MEDS: SENNA 8.6 MG TAB PO SCH (21:19)
[2018-09-01] MEDS: DOCUSATE SODIUM 100 MG CAP PO SCH (21:19)
[2018-09-01] MEDS: ACETAMINOPHEN 500 MG TAB PO SCH (21:57)
[2018-09-01] MEDS: ASPIRIN 81 MG ECTAB PO SCH (21:58)
--- NOTE | 2018-09-01 22:12 | Anesthesiology Progress Note ---
Date of Service September 01, 2018 Assessment & Plan (1) Encounter for pre-operative examination: Patient with post-operative tongue swelling, several hours after operation. This appears likely to be an allergic reaction, potentially a very mild angioedema. She is responding nicely to antihistamine. I can find no obvious precipitating cause or underlying drug reaction, however, given her repeated exposure to first generation cephalosporins over the past few weeks, and subsequent reintroduction of IV therapy with Ancef, I think it prudent to change her antibiotic therapy at this time, prior to her next dose. I have changed her antibiotic at this time to clindamycin, which should provide good coverage for skin/soft tissue infection, which can be continued pending cultures and input of the surgical team. I have also placed her on 24 hours of oral corticosteroid therapy. In the absence of worsening symptoms, there is no indication for increase in level of care or impending airway compromise. We will watch her overnight and reevaluate in the morning. Subjective Post operatively after disposition to med/surgical floor, patient was complained of tingling sensation on tip of tongue. Less than one hour later, she complained of swelling in her tongue and difficulty with speech. Upon notification, I ordered 25mg of IV diphenhydramine prior to evaluation of the patient. By my arrival at bedside, the patient stated that her tongue swelling had improved somewhat, but was still making speech difficult. She was able to swallow without difficulty, aside from a mild sore throat. She had no complaints of dyspnea. She had no feeling of pruritis or swelling anywhere else. On exam, she had significant swelling of the tongue without any associated swelling of the pallate or pharyngeal soft tissue. Her breathing was unlabored and there was no difficulty comprehending her speech. Her vital signs were stable and unremarkable. Review of Systems Ear, Nose, Mouth, Throat: as per Subjective / HPI and + sore throat Respiratory: as per Subjective / HPI Physical Exam Vital Signs: Last Vital Signs Temp 37.2 C 09/01/18 21:42 Pulse 63 09/01/18 21:42 Resp 17 09/01/18 21:42 BP 116/74 09/01/18 21:42 Pulse Ox 93 09/01/18 21:42 ENMT: Mouth: + tongue abnormality Throat: uvula midline; no posterior oropharynx abnormality and no uvular edema Neck: normal visual inspection Respiratory: normal respiratory effort; no respiratory distress and no labored breathing Cardiovascular: Rate/Rhythm: regular rate and regular rhythm Results & Data Medications Administered Acetaminophen (Tylenol) 1,000 mg PO Q8 [facility] Stop: 10/01/18 21:59 Last Admin: 09/01/18 21:57 Dose: 1,000 mg Documented by: [id number] Aspirin (Ecotrin Ectab) 81 mg PO BID [facility] Stop: 10/01/18 20:59 Last Admin: 09/01/18 21:58 Dose: 81 mg Documented by: [id number] Docusate Sodium (Colace) 100 mg PO BID [facility] Stop: 10/01/18 20:59 Last Admin: 09/01/18 21:19 Dose: Not Given Documented by: [id number] Sodium Chloride (Nss 1000ml) 1,000 mls @ 100 mls/hr IV .Q10H [facility] Stop: 09/02/18 06:00 Last Admin: 09/01/18 19:19 Dose: 100 mls/hr Documented by: [id number] Sennosides (Senokot) 17.2 mg PO HS [facility] Stop: 10/01/18 20:59 Last Admin: 09/01/18 21:19 Dose: Not Given Documented by: [id number]
[2018-09-01] MEDS ORDERED: COUGH DROP (SUGAR FREE) LOZ 24 LOZ/1 BOX BUCCAL ONE (23:36)
[2018-09-01] MEDS: CLINDAMYCIN 900 MG in DEXTROSE 5% 100 ML IV SCH (23:38)
[2018-09-01] MEDS: predniSONE 20 MG TAB PO SCH (23:38)
[2018-09-02] MEDS: LEVOTHYROXINE SODIUM 150 MCG TABLET PO SCH (05:58)
[2018-09-02] MEDS: ACETAMINOPHEN 500 MG TAB PO SCH ×3 (05:58→22:19)
[2018-09-02] MEDS: CLINDAMYCIN 900 MG in DEXTROSE 5% 100 ML IV SCH ×3 (05:58→21:14)
[2018-09-02] MEDS: predniSONE 20 MG TAB PO SCH ×2 (05:58→13:19)
[2018-09-02] MEDS ORDERED: CEFAZOLIN 2000MG 2,000 MG/15 ML SYR IV SCH ×2 (06:00)
[2018-09-02 06:44] LABS: Hematocrit (blood only) 38.5 % (37-47); Hemoglobin 12.8 g/dL (12.0-16.0); Mean Corpuscular Hgb Conc 33.2 g/dL (32-36); Mean Corpuscular Volume 87.3 fL (80-100); Mean Platelet Volume 9.5 fL (7.4-10.4); Platelet Count 206 K/uL (130-400); RDW Coefficient of Variation 13.4 % (11.5-14.5); RDW Standard Deviation 43.1 fL (36.4-46.3); Red Blood Count 4.41 M/uL (4.2-5.4); White Blood Count 8.86 K/uL (4.8-10.8)
[2018-09-02] MEDS: SODIUM CHLORIDE 0.9% 1000ML 1,000 ML IV SCH (06:44)
[2018-09-02 07:15] LABS: BUN Creatinine Ratio 12.8 (10-20); Calcium 9.1 mg/dl (8.5-10.1); Creatinine Clr Calc Pharmacy 70.8 ml/min; Est GFR (Non-African American) 45.7; Potassium 4.1 mmol/L (3.5-5.1)
[2018-09-02] MEDS: METOPROLOL SUCC 50MG EXT REL TAB PO SCH (08:25)
[2018-09-02] MEDS: CITALOPRAM 40 MG TAB PO SCH (08:25)
[2018-09-02] MEDS: DOCUSATE SODIUM 100 MG CAP PO SCH ×2 (08:25→21:13)
[2018-09-02] MEDS: CHLORTHALIDONE 25 MG TAB PO SCH (08:25)
[2018-09-02] MEDS: ASPIRIN 81 MG ECTAB PO SCH ×2 (08:25→21:13)
[2018-09-02] MEDS: SPIRONOLACTONE 25 MG TAB PO SCH (08:25)
[2018-09-02] MEDS: MULTIVITAMIN TAB PO SCH (08:25)
--- NOTE | 2018-09-02 09:01 | Orthopedic Progress Note ---
Date of Service September 02, 2018 Assessment & Plan (1) Wound dehiscence: 58 yo female stable POD #1 s/p right knee I&D, wound closure, Finegoldia Magna on culture 1. Med management- cont IV abx, ID consulted 2. DVT prophylaxis 3. D/C planning- pending recommendations by ID Subjective Pt resting in bed, pain controlled, denies complaints Physical Exam Physical Exam: Toes mobile, N/V/I, Prevena dressing in place Results & Data Vital Signs (Past 12 Hours) Vital Signs Temp Pulse Resp BP Pulse Ox 09/02/18 07:14 36.6 C 60 20 119/70 96 09/02/18 02:45 36.8 C 63 16 122/69 96 09/01/18 23:15 36.6 C 69 18 147/71 H 91 09/01/18 21:42 37.2 C 63 17 116/74 93 Laboratory Results 09/02/18 09/02/18 09/01/18 Range/Units 06:26 06:26 12:41 WBC 8.86 (4.8-10.8) K/uL RBC 4.41 (4.2-5.4) M/uL Hgb 12.8 (12.0-16.0) g/dL Hct 38.5 (37-47) % MCV 87.3 (80-100) fL MCH 29.0 (25-34) pg MCHC 33.2 (32-36) g/dL RDW Std Deviation 43.1 (36.4-46.3) fL RDW Coeff of Althea 13.4 (11.5-14.5) % Plt Count 206 (130-400) K/uL MPV 9.5 (7.4-10.4) fL Immature Gran % (Auto) % Neut % (Auto) % Lymph % (Auto) % Labette % (Auto) % Eos % (Auto) % Baso % (Auto) % Immature Gran # (Auto) (0.00-0.02) K/uL Neut # (Auto) (1.4-6.5) K/uL Lymph # (Auto) (1.2-3.4) K/uL Labette # (Auto) (0.11-0.59) K/uL Eos # (Auto) (0-0.5) K/uL Baso # (Auto) (0-0.2) K/uL Sodium 138 137 (136-145) mmol/L Potassium 4.1 3.6 (3.5-5.1) mmol/L Chloride 105 104 (98-107) mmol/L Carbon Dioxide 27 28 (21-32) mmol/L Anion Gap 7.0 5.0 (3-11) BUN 16 18 (7-18) mg/dl Creatinine 1.28 H 1.22 H (0.6-1.2) mg/dl Est Cr Clr Drug Dosing 70.8 74.3 ml/min Est GFR ( Amer) 53.0 56.2 Est GFR (Non-Af Amer) 45.7 48.5 BUN/Creatinine Ratio 12.8 14.8 (10-20) Glucose 161 H 96 (70-99) mg/dl Calcium 9.1 9.3 (8.5-10.1) mg/dl Blood Type Antibody Screen 09/01/18 09/01/18 Range/Units 12:41 12:41 WBC 7.17 (4.8-10.8) K/uL RBC 4.59 (4.2-5.4) M/uL Hgb 13.5 (12.0-16.0) g/dL Hct 40.3 (37-47) % MCV 87.8 (80-100) fL MCH 29.4 (25-34) pg MCHC 33.5 (32-36) g/dL RDW Std Deviation 43.5 (36.4-46.3) fL RDW Coeff of Althea 13.7 (11.5-14.5) % Plt Count 236 (130-400) K/uL MPV 9.8 (7.4-10.4) fL Immature Gran % (Auto) 0.4 % Neut % (Auto) 60.8 % Lymph % (Auto) 26.1 % Labette % (Auto) 8.6 % Eos % (Auto) 3.3 % Baso % (Auto) 0.8 % Immature Gran # (Auto) 0.03 H (0.00-0.02) K/uL Neut # (Auto) 4.35 (1.4-6.5) K/uL Lymph # (Auto) 1.87 (1.2-3.4) K/uL Labette # (Auto) 0.62 H (0.11-0.59) K/uL Eos # (Auto) 0.24 (0-0.5) K/uL Baso # (Auto) 0.06 (0-0.2) K/uL Sodium (136-145) mmol/L Potassium (3.5-5.1) mmol/L Chloride (98-107) mmol/L Carbon Dioxide (21-32) mmol/L Anion Gap (3-11) BUN (7-18) mg/dl Creatinine (0.6-1.2) mg/dl Est Cr Clr Drug Dosing ml/min Est GFR ( Amer) Est GFR (Non-Af Amer) BUN/Creatinine Ratio (10-20) Glucose (70-99) mg/dl Calcium (8.5-10.1) mg/dl Blood Type AB Negative Antibody Screen NEGATIVE 09/01/18 17:00 Gram Stain - Final Knee,Right Aerobic and Anaerobic Culture - Pending
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
--- NOTE | 2018-09-02 11:00 | Anesthesiology Progress Note ---
Date of Service September 02, 2018 Anesthesia Post Procedure Vital Signs Vital Signs: Temp Pulse Pulse Pulse Resp BP Pulse Ox 09/02/18 07:14 97.9 F 60 20 119/70 96 09/02/18 02:45 98.2 F 63 16 122/69 96 09/01/18 23:15 97.9 F 69 18 147/71 H 91 09/01/18 21:42 99.0 F 63 17 116/74 93 09/01/18 20:35 98.2 F 76 18 151/77 H 94 09/01/18 19:33 98.6 F 59 L 18 113/63 91 09/01/18 19:00 98.2 F 63 20 121/74 97 09/01/18 18:15 97.9 F 66 18 121/85 97 09/01/18 18:05 67 20 138/75 99 09/01/18 17:55 73 16 126/70 99 09/01/18 17:45 69 22 123/72 99 09/01/18 17:36 97.2 F L 75 18 104/68 98 09/01/18 16:38 60 18 138/68 96 09/01/18 15:07 98.1 F 68 18 120/71 96 Pain Intensity Right Leg: Pain Intensity: 3 Notes Mental Status: alert / awake / arousable and participated in evaluation Patient Amnestic to Procedure: Yes Nausea / Vomiting: adequately controlled Pain: adequately controlled Airway Patency, RR, SpO2: stable & adequate BP & HR: stable & adequate Hydration State: stable & adequate Anesthetic Complications: no major complications apparent and Pt Satisfied with anesthetic care Notes: The patient had angioedema post-operatively. The pt was treated with benadryl and prednisone. The pt states having a "burnt tongue" sensation on the tip of her tongue. The pt has no obvious swelling or abrasion of her tongue. The pt otherwise has had no trouble talking or swallowing.
[2018-09-02] MEDS: SENNA 8.6 MG TAB PO SCH (21:13)
[2018-09-03] MEDS: CLINDAMYCIN 900 MG in DEXTROSE 5% 100 ML IV SCH ×3 (06:26→21:21)
[2018-09-03] MEDS: ACETAMINOPHEN 500 MG TAB PO SCH ×3 (06:26→21:21)
[2018-09-03] MEDS: LEVOTHYROXINE SODIUM 150 MCG TABLET PO SCH (06:26)
[2018-09-03] MEDS: ASPIRIN 81 MG ECTAB PO SCH ×2 (08:52→21:21)
[2018-09-03] MEDS: CHLORTHALIDONE 25 MG TAB PO SCH (08:53)
[2018-09-03] MEDS: CITALOPRAM 40 MG TAB PO SCH (08:53)
[2018-09-03] MEDS: DOCUSATE SODIUM 100 MG CAP PO SCH ×2 (08:53→21:21)
[2018-09-03] MEDS: MULTIVITAMIN TAB PO SCH (08:54)
[2018-09-03] MEDS: METOPROLOL SUCC 50MG EXT REL TAB PO SCH (08:54)
[2018-09-03] MEDS: SPIRONOLACTONE 25 MG TAB PO SCH (08:55)
--- NOTE | 2018-09-03 09:31 | Orthopedic Progress Note ---
Date of Service September 03, 2018 Assessment & Plan (1) Wound dehiscence: 58 yo female stable POD #2 s/p right knee I&D, wound closure, Finegoldia Magna (Peptostreptococcus reclassified species) on culture, appreciate Dr Barrientos's consult 1. Med management- cont IV abx, 2. DVT prophylaxis 3. D/C planning- pending recommendations by ID Subjective Pt resting in bed, pain controlled, denies complaints Physical Exam Physical Exam: Dressing D/C'd, Prevena in place, no erythema lower leg Results & Data Vital Signs (Past 12 Hours) Vital Signs Temp Pulse Resp BP Pulse Ox 09/03/18 06:55 36.7 C 60 18 145/78 H 99 09/02/18 23:08 36.9 C 64 18 121/62 93 Laboratory Results Microbiology 09/01/18 17:00 Knee,Right Gram Stain - Final 09/01/18 17:00 Knee,Right Aerobic and Anaerobic Culture - Preliminary No growth to date.
[2018-09-03] MEDS: SENNA 8.6 MG TAB PO SCH (21:21)
[2018-09-04] MEDS: LEVOTHYROXINE SODIUM 150 MCG TABLET PO SCH (06:08)
[2018-09-04] MEDS: ACETAMINOPHEN 500 MG TAB PO SCH ×3 (06:08→21:14)
[2018-09-04] MEDS: CLINDAMYCIN 900 MG in DEXTROSE 5% 100 ML IV SCH ×4 (06:08→21:13)
[2018-09-04] MEDS: SPIRONOLACTONE 25 MG TAB PO SCH (08:49)
[2018-09-04] MEDS: CITALOPRAM 40 MG TAB PO SCH (08:50)
[2018-09-04] MEDS: ASPIRIN 81 MG ECTAB PO SCH ×2 (08:50→21:14)
[2018-09-04] MEDS: CHLORTHALIDONE 25 MG TAB PO SCH (08:50)
[2018-09-04] MEDS: DOCUSATE SODIUM 100 MG CAP PO SCH ×2 (08:50→21:12)
[2018-09-04] MEDS: METOPROLOL SUCC 50MG EXT REL TAB PO SCH (08:51)
[2018-09-04] MEDS: MULTIVITAMIN TAB PO SCH (08:51)
--- NOTE | 2018-09-04 09:36 | Orthopedic Progress Note ---
Date of Service September 04, 2018 Assessment & Plan (1) Wound dehiscence: 58 yo female stable POD #2 s/p right knee I&D, wound closure, Finegoldia Magna (Peptostreptococcus reclassified species) on culture from previous admission. Currently cx's from this visit are NGTD. 1. Med management- cont IV abx, 2. DVT prophylaxis 3. D/C planning- pending recommendations by ID 4. Await Dr Barrientos's input - IV vs PO treatment Patient seen and examined agree with above assessment and plan. Subjective Patient lying in bed watching TV. No complaints this morning. Pain controlled. Denies shortness of breath, chest pain, lightheadedness. He is able to bend her knee better this morning. Physical Exam Physical Exam: Prevena dressing is clean, dry, intact. Calves are soft and nontender. Toes are mobile. She has a small dressing over the lateral aspect of the knee with a Tegaderm over top of the gauze. There is minimal to no drainage from this dressing. Results & Data Vital Signs (Past 12 Hours) Vital Signs Temp Pulse Pulse Resp BP Pulse Ox 09/04/18 08:00 36.6 C 60 18 120/70 94 09/03/18 22:45 36.9 C 63 18 120/70 96
--- NOTE | 2018-09-04 15:10 | Infectious Disease Progress Nt ---
Date of Service September 04, 2018 Assessment & Plan (1) Post-operative wound abscess: Patient with right knee infection following repair of traumatic laceration, with previous cultures positive for Finegoldia, with operative cultures no growth. This suggests prior antibiotics may have been effective. However, given clinical improvement, would continue clindamycin but recommend oral clindamycin 300 mg 3 times daily along with levofloxacin 500 mg daily. Would like to see patient in the office in 2 weeks to assess need for further antibiotics. Subjective Patient seen in follow-up for right knee infection following repair of right knee laceration. Feeling much better, pain better controlled. No fever. Operative cultures negative. No new complaints otherwise. Review of Systems Review of Systems: All systems reviewed & are unremarkable except as noted in HPI & below Physical Exam Constitutional: WD/WN, vitals as above + morbidly obese and comfortable; no acute distress Eyes: PERRL, conjunctivae normal, anicteric sclerae ENMT: external ear and nose normal, oropharynx normal Neck: trachea midline, no thyromegaly neck nontender Respiratory: normal respiratory effort, lungs clear to auscultation normal percussion; does not use accessory muscles Cardiovascular: Rate/Rhythm: regular rate and regular rhythm Heart Sounds: normal S1 and normal S2; no gallop, no murmur and no cardiac rub Vessels: normal peripheral pulses; no JVD Gastrointestinal (Abdomen): normal bowel sounds, soft, nontender, no hepatosplenomegaly Musculoskeletal: no cyanosis or clubbing, extremities motor strength 5/5 Spine: thoracic spine normal to inspection and lumbar spine normal to inspection; no cervical spinal tenderness Skin: no rashes, warm and dry normal turgor; no lesions Neurologic: patellar DTR's 2+ bilat, sensation intact no focal motor deficits Psychiatric: A+Ox3, euthymic affect Orientation: cooperative Lymphatic: no cervical or axillary lymphadenopathy no inguinal lymphadenopathy Results & Data Vital Signs (Past 12 Hours) Vital Signs Temp Pulse Resp BP Pulse Ox 09/04/18 12:33 36.7 C 61 15 115/70 98 09/04/18 08:00 36.6 C 60 18 120/70 94 Laboratory Results Microbiology 09/01/18 17:00 Knee,Right Gram Stain - Final 09/01/18 17:00 Knee,Right Aerobic and Anaerobic Culture - Preliminary No growth to date.
[2018-09-04] MEDS: SENNA 8.6 MG TAB PO SCH (21:12)
--- OUTSIDE RECORDS SUMMARY | 2018-09-04 22:13 | External Medical Summary | Continuity of Care Document ---
:1960 Author Name Ginger Juarez, Provider Address Unavailable Unavailable , Care Team Providers Name Role Phone [facility] [email or web address], Provider Unavailable [email or web address], [email or web address] Unavailable Unavailable Problems Active medical history not documented Allergies and Adverse Reactions Allergy history not documented Medications Medications not documented Procedures Procedures not documented Immunizations Immunizations not documented Plan of Treatment Planned Observations Planned Goals not documented Results No Known Results Results not documented
[2018-09-05] MEDS: LEVOTHYROXINE SODIUM 150 MCG TABLET PO SCH (06:10)
[2018-09-05] MEDS: CLINDAMYCIN 900 MG in DEXTROSE 5% 100 ML IV SCH (06:10)
[2018-09-05] MEDS: ACETAMINOPHEN 500 MG TAB PO SCH (06:10)
--- NOTE | 2018-09-05 07:01 | Orthopedic Progress Note ---
Date of Service September 05, 2018 Assessment & Plan (1) Wound dehiscence: 58 yo female stable POD #4 s/p right knee I&D, wound closure, Finegoldia Magna (Peptostreptococcus reclassified species) on culture from previous admission. Currently cx's from this visit are NGTD. As per Dr Barrientos, operative cultures no growth, which suggests prior antibiotics have been effective, he recommends would continue clindamycin but recommend oral clindamycin 300 mg 3 times daily along with levofloxacin 500 mg daily. and then he would like to see her in 2 weeks. we will also schedule her a follow up with dr warren this tuesday to have wound vac removed and dressing changed. will d/c home later today on PO Abx, prevena wound vac; Subjective POD #4: patient resting comfortably in bed, denies CP/SOB, denies Fever/Chills. pain in her lower leg tolerable, 2/10 at this time. Review of Systems Review of Systems: All systems reviewed & are unremarkable except as noted in HPI & below Musculoskeletal: no joint pain Prevena dressing is clean, dry, intact. Calves are soft and nontender. Toes are mobile, able to wiggle toes/ankle movement without discomfort. She has a small dressing over the lateral aspect of the knee with a Tegaderm over top of the gauze. There is minimal drainage noted on this today. Physical Exam Physical Exam: Vital Signs Temp 36.8 C 09/04/18 23:16 Pulse 59 L 09/04/18 23:16 Resp 20 09/04/18 23:16 BP 110/62 09/04/18 23:16 Pulse Ox 96 09/04/18 23:16 Intake & Output 09/04/18 09/04/18 09/05/18 06:59 18:59 06:59 Intake Total 106 / 868 212 / 518 306 / 518 Output Total Balance 106 / 868 212 / 517 305 / 517 Intake: IV 106 / 318 212 / 318 106 / 318 Cleocin 900 mg In D5 100 ml @ 106 / 318 212 / 318 106 / 318 100 mls/hr IV Q8H HEMANTH Rx#: [id number] Oral 200 / 200 Output: # Bowel Movement s Other: # Unmeasured Voi ds 1 Constitutional: WD/WN, vitals as above no acute distress Results & Data Vital Signs (Past 12 Hours) Vital Signs Temp Pulse Resp BP Pulse Ox 09/04/18 23:16 36.8 C 59 L 20 110/62 96 Laboratory Results Laboratory Results WBC 8.86 K/uL (4.8-10.8) 09/02/18 06:26 RBC 4.41 M/uL (4.2-5.4) 09/02/18 06:26 Hgb 12.8 g/dL (12.0-16.0) 09/02/18 06:26 Hct 38.5 % (37-47) 09/02/18 06:26 MCV 87.3 fL (80-100) 09/02/18 06: MCH 29.0 pg (25-34) 09/02/18 06:26 MCHC 33.2 g/dL (32-36) 09/02/18 06:26 RDW Std Deviation 43.1 fL (36.4-46.3) 09/02/18 06:26 RDW Coeff of Althea 13.4 % (11.5-14.5) 09/02/18 06:26 Plt Count 206 K/uL (130-400) 09/02/18 06:26 MPV 9.5 fL (7.4-10.4) 09/02/18 06:26 Immature Gran % (Auto) 0.4 % 09/01/18 12:41 Neut % (Auto) 60.8 % 09/01/18 12:41 Lymph % (Auto) 26.1 % 09/01/18 12:41 [place]umpkin % (Auto) 8.6 % 09/01/18 12:41 Eos % (Auto) 3.3 % 09/01/18 12:41 Baso % (Auto) 0.8 % 09/01/18 12:41 Immature Gran # (Auto) 0.03 K/uL (0.00-0.02) H 09/01/18 12:41 Neut # (Auto) 4.35 K/uL (1.4-6.5) 09/01/18 12:41 Lymph # (Auto) 1.87 K/uL (1.2-3.4) 09/01/18 12:41 [place]umpkin # (Auto) 0.62 K/uL (0.11-0.59) H 09/01/18 12:41 Eos # (Auto) 0.24 K/uL (0-0.5) 09/01/18 12:41 Baso # (Auto) 0.06 K/uL (0-0.2) 09/01/18 12:41 Sodium 138 mmol/L (136-145) 09/02/18 06:26 Potassium 4.1 mmol/L (3.5-5.1) 09/02/18 06:26 Chloride 105 mmol/L (98-107) 09/02/18 06:26 Carbon Dioxide 27 mmol/L (21-32) 09/02/18 06:26 Anion Gap 7.0 (3-11) 09/02/18 06:26 BUN 16 mg/dl (7-18) 09/02/18 06:26 Creatinine 1.28 mg/dl (0.6-1.2) H 09/02/18 06:26 Est Cr Clr Drug Dosing 70.8 ml/min 09/02/18 06:26 Est GFR ( Amer) 53.0 09/02/18 06:26 Est GFR (Non-Af Amer) 45.7 09/02/18 06:26 BUN/Creatinine Ratio 12.8 (10-20) 09/02/18 06:26 Glucose 161 mg/dl (70-99) H 09/02/18 06:26 Calcium 9.1 mg/dl (8.5-10.1) 09/02/18 06:26 Blood Type AB Negative 09/01/18 12:41 Antibody Screen NEGATIVE 09/01/18 12:41 Microbiology 09/01/18 17:00 Knee,Right Gram Stain - Final 09/01/18 17:00 Knee,Right Aerobic and Anaerobic Culture - Preliminary No growth to date.
[2018-09-05] MEDS: CITALOPRAM 40 MG TAB PO SCH (09:29)
[2018-09-05] MEDS: ASPIRIN 81 MG ECTAB PO SCH (09:29)
[2018-09-05] MEDS: DOCUSATE SODIUM 100 MG CAP PO SCH (09:29)
[2018-09-05] MEDS: CHLORTHALIDONE 25 MG TAB PO SCH (09:30)
[2018-09-05] MEDS: METOPROLOL SUCC 50MG EXT REL TAB PO SCH (09:30)
[2018-09-05] MEDS: MULTIVITAMIN TAB PO SCH (09:30)
[2018-09-05] MEDS: SPIRONOLACTONE 25 MG TAB PO SCH (09:31)
--- NOTE | 2018-09-05 10:24 | Infectious Disease Progress Nt ---
Date of Service September 05, 2018 Assessment & Plan (1) Post-operative wound abscess: Patient with right knee infection following repair of traumatic laceration, with previous cultures positive for Finegoldia, with operative cultures no growth. This suggests prior antibiotics may have been effective and led to negative culture results. Would recommend continuing clindamycin 300 mg 3 times daily along with levofloxacin 500 mg daily, and I will follow-up within 2 weeks to assess need for further antibiotics. Subjective Patient seen in follow-up for right knee infection. She appears comfortable, pain controlled, no fever, tolerating antibiotic without apparent difficulty. No other new complaints. Review of Systems Review of Systems: All systems reviewed & are unremarkable except as noted in HPI & below Physical Exam Constitutional: WD/WN, vitals as above + morbidly obese and comfortable; no acute distress Eyes: PERRL, conjunctivae normal, anicteric sclerae ENMT: external ear and nose normal, oropharynx normal Neck: trachea midline, no thyromegaly neck nontender Respiratory: normal respiratory effort, lungs clear to auscultation normal percussion; does not use accessory muscles Cardiovascular: Rate/Rhythm: regular rate and regular rhythm Heart Sounds: normal S1 and normal S2; no gallop, no murmur and no cardiac rub Vessels: normal peripheral pulses; no JVD Gastrointestinal (Abdomen): normal bowel sounds, soft, nontender, no hepatosplenomegaly Musculoskeletal: no cyanosis or clubbing, extremities motor strength 5/5 Spine: thoracic spine normal to inspection and lumbar spine normal to inspection; no cervical spinal tenderness Skin: no rashes, warm and dry normal turgor; no lesions Neurologic: patellar DTR's 2+ bilat, sensation intact no focal motor deficits Psychiatric: A+Ox3, euthymic affect Orientation: cooperative Lymphatic: no cervical or axillary lymphadenopathy no inguinal lymphadenopathy Results & Data Vital Signs (Past 12 Hours) Vital Signs Temp Pulse Resp BP Pulse Ox 09/05/18 07:16 36.7 C 62 16 129/76 94 09/04/18 23:16 36.8 C 59 L 20 110/62 96 Diagnostic Findings Microbiology 09/01/18 17:00 Knee,Right Gram Stain - Final 09/01/18 17:00 Knee,Right Aerobic and Anaerobic Culture - Preliminary No growth to date.
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
== END 2018-09-05 13:02 | disposition home or self-care (01) | DRG 908 ==
LOC: 3W 11:42
DX: V89.2XXS Person injured in unspecified motor-vehicle accident, traffic, sequela; L02.415 Cutaneous abscess of right lower limb; Z79.82 Long term (current) use of aspirin; Y99.8 Other external cause status; S81.811S Laceration without foreign body, right lower leg, sequela; F41.9 Anxiety disorder, unspecified; Z79.899 Other long term (current) drug therapy; I10 Essential (primary) hypertension; Z95.0 Presence of cardiac pacemaker; Y83.8 Other surgical procedures as the cause of abnormal reaction of the patient, or of later complication, without mention of misadventure at the time of the procedure; Z68.43 Body mass index [BMI] 50.0-59.9, adult; G47.33 Obstructive sleep apnea (adult) (pediatric); E66.01 Morbid (severe) obesity due to excess calories; F32.9 Major depressive disorder, single episode, unspecified; T81.33XA Disruption of traumatic injury wound repair, initial encounter; E03.9 Hypothyroidism, unspecified

== ENCOUNTER 2020-01-23 07:06 | Observation (INO) ==
[2020-01-23] MEDS ORDERED: KETOROLAC TROMETHAMINE 15 MG/ML VIAL IV STA (07:43)
[2020-01-23] MEDS ORDERED: ONDANSETRON INJ 2 MG/ML 2 ML VIAL IV STA (07:43)
[2020-01-23] MEDS ORDERED: SODIUM CHLORIDE 0.9% 1000ML 1,000 ML IV ONE (07:43)
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
[2020-01-23 08:17] LABS: Basophils # (auto) 0.02 K/uL (0-0.2); Basophils % (auto) 0.2 %; Eosinophils # (auto) 0.01 K/uL (0-0.5); Eosinophils % (auto) 0.1 %; Hematocrit (blood only) 39.1 % (37-47); Hemoglobin 13.2 g/dL (12.0-16.0); Immature Granulocytes # (auto) 0.02 K/uL (0.00-0.02); Immature Granulocytes % (auto) 0.2 %; Lymphocytes # (auto) 0.89 K/uL (1.2-3.4); Lymphocytes % (auto) 8.7 %; Mean Corpuscular Hemoglobin 29.7 pg (25-34); Mean Corpuscular Hgb Conc 33.8 g/dL (32-36); Mean Corpuscular Volume 87.9 fL (80-100); Mean Platelet Volume 10.3 fL (7.4-10.4); Monocytes # (auto) 1.75 K/uL (0.11-0.59); Monocytes % (auto) 17.2 %; Neutrophils % (auto) 73.6 %; Platelet Count 179 K/uL (130-400); RDW Standard Deviation 42.1 fL (36.4-46.3); Red Blood Count 4.45 M/uL (4.2-5.4); White Blood Count 10.19 K/uL (4.8-10.8)
--- NOTE | 2020-01-23 08:24 | XRay Report ---
XR chest 1V portable HISTORY: Nausea. Vomiting. Diarrhea. COMPARISON: Chest 05/08/2018. FINDINGS: There are low lung volumes. The heart remains borderline enlarged. There is mild central pu lmonary basilar congestion without overt edema. Left-sided pacemaker. No pleural effusions. No pneumo thorax. No new focal lung consolidations to suggest pneumonia. IMPRESSION: Mild central pulmonary vascular congestion without overt edema. ACT 112: Negative or not required by law. Electronically signed by: Brandon Sosa M.D. 01/23/2020 8:23 AM
[2020-01-23 08:29] LABS: INR 1.1 (0.9-1.1); Prothrombin Time 11.9 Seconds (9.0-12.0)
[2020-01-23 08:35] LABS: Alanine Aminotransferase 23 U/L (12-78); Albumin Level 2.7 gm/dl (3.4-5.0); Aspartate Aminotransferase 45 U/L (15-37); BUN Creatinine Ratio 13.2 (10-20); Blood Urea Nitrogen 25 mg/dl (7-18); Calcium 8.9 mg/dl (8.5-10.1); Carbon Dioxide 28 mmol/L (21-32); Chloride 98 mmol/L (98-107); Est GFR (African American) 32.2; Est GFR (Non-African American) 27.8; Glucose 122 mg/dl (70-99); Potassium 2.8 mmol/L (3.5-5.1); Sodium 135 mmol/L (136-145)
[2020-01-23 08:40] LABS: Albumin Globulin Ratio 0.5 (0.9-2); Alkaline Phosphatase 82 U/L (45-117); Bilirubin,Total 1.2 mg/dl (0.2-1); Globulin 4.9 gm/dl (2.5-4.0); Total Protein 7.6 gm/dl (6.4-8.2); Troponin I < 0.015 ng/ml (0-0.045)
[2020-01-23 09:08] LABS: Lyme Ab IgG w/WB Rflx Negative (Negative); Lyme Ab IgM w/WB Rflx Negative (Negative)
[2020-01-23] MEDS ORDERED: POTASSIUM CHLORIDE 20 MEQ TABCR PO STA (09:11)
[2020-01-23] MEDS ORDERED: POTASSIUM CHLORIDE / WTR 10 MEQ/100 ML PLCT IV ONE (09:11)
[2020-01-23 12:09] LABS: Adenovirus PCR Not Detected (NotDetected); Bordetella parapertussis PCR Not Detected (NotDetected); Bordetella pertussis PCR Not Detected (NotDetected); Chlamydia pneumoniae PCR Not Detected (NotDetected); Coronavirus 229E PCR Not Detected (NotDetected); Coronavirus CoV-2 (COVID19)PCR Not Detected (NotDetected); Coronavirus HKU1 PCR Not Detected (NotDetected); Coronavirus NL63 PCR Not Detected (NotDetected); Coronavirus OC43PCR Not Detected (NotDetected); Human Metapneumovirus PCR Not Detected (NotDetected); Influenza A PCR Not Detected (NotDetected); Influenza B PCR Not Detected (NotDetected); Mycoplasma pneumoniae PCR Not Detected (NotDetected); Parainfluenza Virus 1 PCR Not Detected (NotDetected); Parainfluenza Virus 2 PCR Not Detected (NotDetected); Parainfluenza Virus 3 PCR Not Detected (NotDetected); Parainfluenza Virus 4 PCR Not Detected (NotDetected); Respiratory Syncytial VirusPCR Not Detected (NotDetected); Rhinovirus/Enterovirus PCR Not Detected (NotDetected)
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
[2020-01-23 13:53] LABS: Magnesium 1.9 mg/dl (1.8-2.4); Thyroid Stimulating Hormone 1.81 uIu/ml (0.300-4.500)
[2020-01-23] MEDS ORDERED: PROMETHAZINE HCL 12.5 MG in SODIUM CHLORIDE 0.9% 50 ML IV PRN (13:57)
--- NOTE | 2020-01-23 15:17 | Electrocardiogram Report ---
Test Reason : Blood Pressure : / mmHG Vent. Rate : 068 BPM Atrial Rate : 068 BPM P-R Int : 222 ms QRS Dur : 198 ms QT Int : 560 ms P-R-T Axes : 051 -70 048 degrees QTc Int : 595 ms Atrial-sensed ventricular-paced rhythm with prolonged AV conduction Abnormal ECG When compared with ECG of 08-MAY-2018 12:12, Vent. rate has increased BY 5 BPM Confirmed by Jad Bridges ([id number]) on 01/23/2020 3:16:55 PM Referred By: REFERRED SELF Confirmed By:Jad Bridges
[2020-01-23] MEDS: NSS + 20MEQ KCL 20 MEQ/1,000 ML BAG IV SCH (16:24)
[2020-01-23] MEDS: HEPARIN SOD 5,000 UNIT/0.5 ML VIAL SQ SCH ×2 (16:24→22:27)
[2020-01-23] MEDS: PATIENT'S HEIGHT AND/OR WEIGHT NEEDED SCH ×2 (19:02→19:05)
[2020-01-23] MEDS ORDERED: LEVOFLOXACIN/D5W 500 MG/100 ML BAG IV SCH (21:45)
[2020-01-23] MEDS ORDERED: MoRPHine SULFATE 2 MG/ML CARP IV PRN (22:04)
[2020-01-23] MEDS: AMPICILLIN/SULBACTAM SOD 3,000 MG in 0.9 % SODIUM CHLORIDE 100 ML IV SCH (22:27)
[2020-01-23] MEDS: ACETAMINOPHEN 325 MG TAB PO PRN (22:34)
[2020-01-23 22:53] LABS: Appearance Urine Turbid (Clear); Bacteria Urine Automated 4+ (Negative); Bilirubin Urine Negative (Negative); Blood Urine 3+ (Negative); Color Urine Dark Yellow; Epithelial Cell Urine Auto >30 /lpf (0-5); Glucose Urine UA Negative (Negative); Ketones Urine Negative (Negative); Leukocyte Esterase Urine 2+ (Negative); Nitrite Urine Positive (Negative); Protein Urine 2+ (Negative); Specific Gravity Urine 1.016 (1.000-1.030); Urobilinogen Urine Negative (Negative); WBC Urine Automated >30 /hpf (0-5)
[2020-01-23 23:11] LABS: RBC Urine Automated 0-4 /hpf (0-4)
[2020-01-23] MEDS ORDERED: Nursing to Pharmacy Communication SCH (23:30)
[2020-01-24] MEDS: AMPICILLIN/SULBACTAM SOD 3,000 MG in 0.9 % SODIUM CHLORIDE 100 ML IV SCH ×4 (04:35→21:48)
[2020-01-24] MEDS: NSS + 20MEQ KCL 20 MEQ/1,000 ML BAG IV SCH (04:35)
[2020-01-24] MEDS: HEPARIN SOD 5,000 UNIT/0.5 ML VIAL SQ SCH ×3 (05:08→21:48)
[2020-01-24] MEDS: LEVOTHYROXINE SODIUM 150 MCG TABLET PO SCH (05:09)
[2020-01-24 06:05] LABS: Hematocrit (blood only) 34.7 % (37-47); Hemoglobin 11.6 g/dL (12.0-16.0); Mean Corpuscular Hemoglobin 29.3 pg (25-34); Mean Corpuscular Hgb Conc 33.4 g/dL (32-36); Mean Corpuscular Volume 87.6 fL (80-100); Platelet Count 180 K/uL (130-400); RDW Coefficient of Variation 13.2 % (11.5-14.5); RDW Standard Deviation 42.8 fL (36.4-46.3); Red Blood Count 3.96 M/uL (4.2-5.4); White Blood Count 9.25 K/uL (4.8-10.8)
[2020-01-24 06:34] LABS: BUN Creatinine Ratio 14.8 (10-20); Calcium 8.1 mg/dl (8.5-10.1); Creatinine Clr Calc Pharmacy 46.4 ml/min; Est GFR (African American) 32.6; Est GFR (Non-African American) 28.2; Magnesium 1.9 mg/dl (1.8-2.4); Potassium 3.7 mmol/L (3.5-5.1)
[2020-01-24] MEDS: CITALOPRAM 40 MG TAB PO SCH (08:33)
[2020-01-24] MEDS: METOPROLOL SUCC 50MG EXT REL TAB PO SCH (08:33)
--- NOTE | 2020-01-24 15:26 | Hospitalist Progress Note ---
Date of Service January 24, 2020 Assessment & Plan (1) Gram-negative bacteremia: Pt is 59 y/o F with PMH HTN, h/o heart block s/p pacemaker, hypothyroidism, venous insufficiency, chronic wounds to his lower legs, LAYA noncompliant with CPAP, obesity, CKD III presented to ER with complaint of N/V/D. Patient states 4 days ago started not feeling well with tactile fevers/chills, weakness. C/O nausea, several episodes of vomiting. 1-2 episodes of diarrhea, none since yesterday. Denies any symptoms suggestive of UTI but urine is very dark and smelly Has had fever up to 38.6 at presentation Patient denies cough, shortness of breath, chest pain, sore throat Came out to have gram-negative bacteremia likely secondary to UTI Urine culture has been pending COVID-19 test has been negative She has been started with IV Unasyn-quinolones have been avoided due to prolonged QT Clinically much better (2) Nausea & vomiting: Possible viral gastroenteritis In ER given Toradol, 1L NSS Is associated with diarrhea Stool has been sent for C. difficile and culture Nausea vomiting have improved and restart diet as tolerated (3) Hypokalemia: K: 2.8 -In ER given 1K rider, 40 meq KCl p.o. -Add magnesium level to assess for hypomagnesemia -Replace and monitor (4) Acute kidney injury superimposed on CKD: Likely secondary to dehydration BUN: 25, Cr: 1.9. Baseline Cr: 1.5 -Avoid nephrotoxic agents -Monitor renal functions (5) HTN (hypertension): Stable -Continue metoprolol -Hold chlorthalidone and spironolactone for now (6) History of heart block: S/P pacemaker (7) Hypothyroidism: TSH pending -Continue levothyroxine (8) Chronic wound of extremity: History of chronic lower extremity wounds. Following with [facility]. Possible skin graft in future No signs or symptoms of acute wound infection at this time (9) Sleep apnea: Noncompliant to CPAP (10) Morbid obesity: BMI: 57 Lifestyle modifications recommended DVT Prophylaxis -Heparin SQ Full Code as per discussion with pt Follows with Dr Obrien for routine care Admission and Anticipated Discharge Date Admission Date: January 23, 2020 Subjective 01/24/2020 The patient was seen and examined in medical telemetry unit She is morbidly obese and was admitted with fever, intractable nausea vomiting and diarrhea She has been feeling a lot better since this morning but diarrhea continues Denies any fever and/or chills, nausea and or vomiting have improved Review of Systems Review of Systems: All systems reviewed and are unremarkable except as noted below Gastrointestinal: + diarrhea/loose stools; no abdominal pain, no nausea and no vomiting Genitourinary: + urinary urgency; no dysuria Dark-colored urine Physical Exam Physical Exam: Lying in bed comfortably Constitutional: + morbidly obese; no acute distress and not ill appearing Eyes: PERRL, conjunctivae normal, anicteric sclerae ENMT: external ear and nose normal, oropharynx normal Neck: trachea midline, no thyromegaly Respiratory: normal respiratory effort; no respiratory distress Auscultation: + diminished lung sounds (Bilaterally and secondary to thick chest wall) Cardiovascular: Rate/Rhythm: regular rate and regular rhythm Heart Sounds: no murmur Gastrointestinal (Abdomen): Inspection/Auscultation: abdomen normal to inspection, + abdomen distended and normal bowel sounds Percussion/Palpation: abdomen soft; abdomen nontender Musculoskeletal: No acute arthritis in any joints Lymphatic: no cervical or axillary lymphadenopathy Results & Data Results & Data ([facility]) Vital Signs (Past 12 Hours) Vital Signs Temp Pulse Pulse Pulse Resp BP Pulse Ox 01/24/20 11:35 37.4 C 72 20 106/62 98 01/24/20 08:34 82 01/24/20 07:24 37.3 C 53 L 18 116/66 95 01/24/20 06:56 80 Laboratory Results Short CBC 01/24/20 Range/Units 05:40 WBC 9.25 (4.8-10.8) K/uL Hgb 11.6 L (12.0-16.0) g/dL Hct 34.7 L (37-47) % Plt Count 180 (130-400) K/uL BMP 01/24/20 05:40 Sodium 138 Potassium 3.7 D Chloride 103 Carbon Dioxide 29 BUN 28 H Creatinine 1.90 H Glucose 106 H Calcium 8.1 L Urine 01/23/20 Range/Units Unknown Urine Color Dark Yellow Urine Appearance Turbid A (Clear) Urine pH 5.0 (4.5-7.5) Ur Specific [place] 1.016 (1.000-1.030) Urine Protein 2+ H (Negative) Urine Glucose (UA) Negative (Negative) Medications Administered Current Inpatient Medications Acetaminophen (Acetaminophen 325 Mg Tab) 650 mg PO Q4H PRN PRN Reason: Pain or Fever Stop: 02/22/20 13:56 Last Admin: 01/23/20 22:34 Dose: 650 mg Documented by: Citalopram Hydrobromide (Citalopram 40 Mg Tab) 40 mg PO QAM [facility] Stop: 02/23/20 08:59 Last Admin: 01/24/20 08:33 Dose: 40 mg Documented by: Heparin Sodium (Porcine) (Heparin Sod 5,000 Unit/0.5 Ml Vial) 7,500 units SQ Q8 [facility] Stop: 02/22/20 13:59 Last Admin: 01/24/20 13:49 Dose: 7,500 units Documented by: Potassium Chloride/Sodium Chloride (Normal Saline W/20 Meq Kcl) 20 meq in 1,000 mls @ 80 mls/hr IV .[id number] [facility] Stop: 01/24/20 17:29 Last Infusion: 01/24/20 05:06 Dose: 80 mls/hr Documented by: Promethazine HCl 12.5 mg/ (Sodium Chloride) 50.5 mls @ 202 mls/hr IV Q6H PRN PRN Reason: Nausea And Vomiting Stop: 02/22/20 13:56 Ampicillin Sodium/Sulbactam Sodium 3,000 mg/ Sodium Chloride 108 mls @ 200 mls/hr IV Q6H [facility]; Protocol Stop: 02/06/20 22:04 Last Infusion: 01/24/20 11:50 Dose: Infused Documented by: Levothyroxine Sodium (Levothyroxine Sodium 150 Mcg Tablet) [facility] Stop: 02/23/20 06:29 Last Admin: 01/24/20 05:09 Dose: 150 mcg Documented by: Metoprolol Succinate (Metoprolol Succ 50mg Ext Rel Tab) 100 mg PO [facility] Stop: 02/23/20 08:59 Last Admin: 01/24/20 08:33 Dose: 100 mg Documented by: Morphine Sulfate (Morphine Sulfate 2 Mg/Ml Carp) 2 mg IV Q4H PRN PRN Reason: Pain Stop: 02/06/20 22:03
--- NOTE | 2020-01-24 20:02 | Electrocardiogram Report ---
Test Reason : Blood Pressure : / mmHG Vent. Rate : 075 BPM Atrial Rate : 075 BPM P-R Int : 218 ms QRS Dur : 186 ms QT Int : 476 ms P-R-T Axes : 051 -74 082 degrees QTc Int : 531 ms Atrial-sensed ventricular-paced rhythm with prolonged AV conduction Abnormal ECG When compared with ECG of 23-JAN-2020 09:20, Vent. rate has increased BY 7 BPM Confirmed by Triston Joy ([id number]) on 01/24/2020 8:02:24 PM Referred By: REFERRED SELF Confirmed By:Triston Joy
[2020-01-25] MEDS: ACETAMINOPHEN 325 MG TAB PO PRN ×2 (02:34→22:21)
[2020-01-25] MEDS: AMPICILLIN/SULBACTAM SOD 3,000 MG in 0.9 % SODIUM CHLORIDE 100 ML IV SCH ×5 (04:52→22:12)
[2020-01-25] MEDS: LEVOTHYROXINE SODIUM 150 MCG TABLET PO SCH (04:53)
[2020-01-25] MEDS: HEPARIN SOD 5,000 UNIT/0.5 ML VIAL SQ SCH ×3 (04:53→22:15)
[2020-01-25 06:00] LABS: Basophils # (auto) 0.02 K/uL (0-0.2); Basophils % (auto) 0.2 %; Eosinophils # (auto) 0.15 K/uL (0-0.5); Eosinophils % (auto) 1.8 %; Hematocrit (blood only) 32.6 % (37-47); Hemoglobin 10.8 g/dL (12.0-16.0); Immature Granulocytes # (auto) 0.04 K/uL (0.00-0.02); Immature Granulocytes % (auto) 0.5 %; Lymphocytes # (auto) 1.48 K/uL (1.2-3.4); Lymphocytes % (auto) 17.7 %; Mean Corpuscular Hgb Conc 33.1 g/dL (32-36); Mean Corpuscular Volume 87.6 fL (80-100); Mean Platelet Volume 9.7 fL (7.4-10.4); Monocytes # (auto) 1.24 K/uL (0.11-0.59); Monocytes % (auto) 14.8 %; Neutrophils # (auto) 5.43 K/uL (1.4-6.5); Platelet Count 220 K/uL (130-400); RDW Coefficient of Variation 13.4 % (11.5-14.5); RDW Standard Deviation 43.5 fL (36.4-46.3); Red Blood Count 3.72 M/uL (4.2-5.4); White Blood Count 8.36 K/uL (4.8-10.8)
[2020-01-25 06:54] LABS: Albumin Level 2.1 gm/dl (3.4-5.0); BUN Creatinine Ratio 12.6 (10-20); Calcium 7.7 mg/dl (8.5-10.1); Creatinine Clr Calc Pharmacy 57.1 ml/min; Est GFR (African American) 41.7; Potassium 3.2 mmol/L (3.5-5.1)
[2020-01-25 07:03] LABS: Albumin Globulin Ratio 0.5 (0.9-2); Bilirubin,Total 0.6 mg/dl (0.2-1); Globulin 4.4 gm/dl (2.5-4.0); Total Protein 6.5 gm/dl (6.4-8.2)
[2020-01-25] MEDS: CITALOPRAM 40 MG TAB PO SCH (08:34)
[2020-01-25] MEDS: METOPROLOL SUCC 50MG EXT REL TAB PO SCH (08:34)
--- NOTE | 2020-01-25 11:48 | Hospitalist Progress Note ---
Date of Service January 25, 2020 Assessment & Plan (1) Gram-negative bacteremia: Pt is 59 y/o F with PMH HTN, h/o heart block s/p pacemaker, hypothyroidism, venous insufficiency, chronic wounds to his lower legs, LAYA noncompliant with CPAP, obesity, CKD III presented to ER with complaint of N/V/D. Patient states 4 days ago started not feeling well with tactile fevers/chills, weakness. C/O nausea, several episodes of vomiting. 1-2 episodes of diarrhea, none since yesterday. Denies any symptoms suggestive of UTI but urine is very dark and smelly Has had fever up to 38.6 at presentation Patient denies cough, shortness of breath, chest pain, sore throat Came out to have gram-negative bacteremia likely secondary to UTI Urine culture has been pending COVID-19 test has been negative She has been started with IV Unasyn-quinolones have been avoided due to prolonged QT Urine culture is growing gram-negative bacilli most likely going to be E. coli Continue intravenous Unasyn for now Likely discharge home tomorrow on oral/IV antibiotics (2) Nausea & vomiting: Possible viral gastroenteritis In ER given Toradol, 1L NSS Is associated with diarrhea Stool has been sent for C. difficile and culture Nausea vomiting have improved and restart diet as tolerated Resolved (3) Hypokalemia: K: 2.8 -In ER given 1K rider, 40 meq KCl p.o. -Add magnesium level to assess for hypomagnesemia -Replaced (4) Acute kidney injury superimposed on CKD: Likely secondary to dehydration BUN: 25, Cr: 1.9. Baseline Cr: 1.5 -Avoid nephrotoxic agents -Monitor renal functions -Renal function has been improving with creatinine 1.55 today (5) HTN (hypertension): Stable -Continue metoprolol -Hold chlorthalidone and spironolactone for now (6) History of heart block: S/P pacemaker (7) Hypothyroidism: TSH pending -Continue levothyroxine (8) Chronic wound of extremity: History of chronic lower extremity wounds. Following with [place] [facility]. Possible skin graft in future No signs or symptoms of acute wound infection at this time (9) Sleep apnea: Noncompliant to CPAP (10) Morbid obesity: BMI: 57 Lifestyle modifications recommended DVT Prophylaxis -Heparin SQ Full Code as per discussion with pt Follows with Dr Obrien for routine care Admission and Anticipated Discharge Date Admission Date: January 23, 2020 Subjective 01/24/2020 The patient was seen and examined in medical telemetry unit She is morbidly obese and was admitted with fever, intractable nausea vomiting and diarrhea She has been feeling a lot better since this morning but diarrhea continues Denies any fever and/or chills, nausea and or vomiting have improved 01/25/2020 Patient was seen and examined in medical telemetry unit She has been feeling a lot better and denies any symptoms as of this morning She has been ambulating in the room without any difficulty Review of Systems Review of Systems: All systems reviewed and are unremarkable except as noted below Physical Exam Physical Exam: Lying in bed comfortably Constitutional: + morbidly obese; no acute distress and not ill appearing Eyes: PERRL, conjunctivae normal, anicteric sclerae ENMT: external ear and nose normal, oropharynx normal Neck: trachea midline, no thyromegaly Respiratory: normal respiratory effort; no respiratory distress Auscultation: + diminished lung sounds (Bilaterally and secondary to thick chest wall) Cardiovascular: Rate/Rhythm: regular rate and regular rhythm Heart Sounds: no murmur Gastrointestinal (Abdomen): Inspection/Auscultation: abdomen normal to inspection, + abdomen distended and normal bowel sounds Percussion/Palpation: abdomen soft; abdomen nontender Musculoskeletal: No acute arthritis involving any joints Lymphatic: no cervical or axillary lymphadenopathy Results & Data Results & Data ([facility]) Vital Signs (Past 12 Hours) Vital Signs Temp Pulse Pulse Pulse Resp BP BP 01/25/20 11:11 36.6 C 61 18 124/75 01/25/20 07:38 36.5 C 60 18 115/69 01/25/20 04:42 66 01/25/20 03:52 37 C 71 20 99/55 L Pulse Ox 01/25/20 11:11 95 01/25/20 07:38 97 01/25/20 04:42 01/25/20 03:52 94 Laboratory Results Short CBC 01/25/20 Range/Units 05:44 WBC 8.36 (4.8-10.8) K/uL Hgb 10.8 L (12.0-16.0) g/dL Hct 32.6 L (37-47) % Plt Count 220 (130-400) K/uL BMP 01/25/20 05:44 Sodium 140 Potassium 3.2 L Chloride 105 Carbon Dioxide 29 BUN 20 H Creatinine 1.55 H D Glucose 99 Calcium 7.7 L Liver Function 01/25/20 Range/Units 05:44 Total Bilirubin 0.6 D (0.2-1) mg/dl AST 36 (15-37) U/L ALT 23 (12-78) U/L Alkaline Phosphatase 72 (45-117) U/L Albumin 2.1 L (3.4-5.0) gm/dl Medications Administered Current Inpatient Medications Acetaminophen (Acetaminophen 325 Mg Tab) 650 mg PO Q4H PRN PRN Reason: Pain or Fever Stop: 02/22/20 13:56 Last Admin: 01/25/20 02:34 Dose: 650 mg Documented by: Citalopram Hydrobromide (Citalopram 40 Mg Tab) 40 mg PO [facility] Stop: 02/23/20 08:59 Last Admin: 01/25/20 08:34 Dose: 40 mg Documented by: Heparin Sodium (Porcine) (Heparin Sod 5,000 Unit/0.5 Ml Vial) 7,500 units SQ Q8 [facility] Stop: 02/22/20 13:59 Last Admin: 01/25/20 04:53 Dose: 7,500 units Documented by: Promethazine HCl 12.5 mg/ (Sodium Chloride) 50.5 mls @ 202 mls/hr IV Q6H PRN PRN Reason: Nausea And Vomiting Stop: 02/22/20 13:56 Ampicillin Sodium/Sulbactam Sodium 3,000 mg/ Sodium Chloride 108 mls @ 200 mls/hr IV Q6H [facility]; Protocol Stop: 02/06/20 22:04 Last Admin: 01/25/20 11:20 Dose: 200 mls/hr Documented by: Levothyroxine Sodium (Levothyroxine Sodium 150 Mcg Tablet) [facility] Stop: 02/23/20 06:29 Last Admin: 01/25/20 04:53 Dose: 150 mcg Documented by: Metoprolol Succinate (Metoprolol Succ 50mg Ext Rel Tab) 100 mg PO [facility] Stop: 02/23/20 08:59 Last Admin: 01/25/20 08:34 Dose: 100 mg Documented by: Morphine Sulfate (Morphine Sulfate 2 Mg/Ml Carp) 2 mg IV Q4H PRN PRN Reason: Pain Stop: 02/06/20 22:03
[2020-01-26] MEDS: HEPARIN SOD 5,000 UNIT/0.5 ML VIAL SQ SCH (05:12)
[2020-01-26] MEDS: AMPICILLIN/SULBACTAM SOD 3,000 MG in 0.9 % SODIUM CHLORIDE 100 ML IV SCH (05:13)
[2020-01-26] MEDS: LEVOTHYROXINE SODIUM 150 MCG TABLET PO SCH (05:13)
[2020-01-26] MEDS: METOPROLOL SUCC 50MG EXT REL TAB PO SCH (08:20)
[2020-01-26] MEDS: CITALOPRAM 40 MG TAB PO SCH (08:20)
--- NOTE | 2020-01-26 10:23 | Hospitalist Progress Note ---
Date of Service January 26, 2020 Assessment & Plan (1) Gram-negative bacteremia: Pt is 59 y/o F with PMH HTN, h/o heart block s/p pacemaker, hypothyroidism, venous insufficiency, chronic wounds to his lower legs, LAYA noncompliant with CPAP, obesity, CKD III presented to ER with complaint of N/V/D. Patient states 4 days ago started not feeling well with tactile fevers/chills, weakness. C/O nausea, several episodes of vomiting. 1-2 episodes of diarrhea, none since yesterday. Denies any symptoms suggestive of UTI but urine is very dark and smelly Has had fever up to 38.6 at presentation Patient denies cough, shortness of breath, chest pain, sore throat Came out to have gram-negative bacteremia likely secondary to UTI Urine culture has been pending COVID-19 test has been negative She has been started with IV Unasyn-quinolones have been avoided due to prolonged QT Urine culture is growing gram-negative bacilli most likely going to be E. coli Continue intravenous Unasyn for now Urine culture grew E. coli which is pansensitive Discussed with pharmacist and as per recent guidelines E. coli bacteremia of this kind can be treated with oral Augmentin She will be getting Augmentin orally for the next 7 days to finish the course. She will be going home this afternoon (2) Nausea & vomiting: Possible viral gastroenteritis In ER given Toradol, 1L NSS Is associated with diarrhea Stool has been sent for C. difficile and culture Nausea vomiting have improved and restart diet as tolerated Resolved (3) Hypokalemia: K: 2.8 -In ER given 1K rider, 40 meq KCl p.o. -Add magnesium level to assess for hypomagnesemia -Replaced (4) Acute kidney injury superimposed on CKD: Likely secondary to dehydration BUN: 25, Cr: 1.9. Baseline Cr: 1.5 -Avoid nephrotoxic agents -Monitor renal functions -Renal function has been improving with creatinine 1.55 today (5) HTN (hypertension): Stable -Continue metoprolol -Hold chlorthalidone and spironolactone for now (6) History of heart block: S/P pacemaker (7) Hypothyroidism: TSH pending -Continue levothyroxine (8) Chronic wound of extremity: History of chronic lower extremity wounds. Following with [facility]. Possible skin graft in future No signs or symptoms of acute wound infection at this time (9) Sleep apnea: Noncompliant to CPAP (10) Morbid obesity: BMI: 57 Lifestyle modifications recommended DVT Prophylaxis -Heparin SQ Full Code as per discussion with pt Follows with Dr Obrien for routine care Admission and Anticipated Discharge Date Admission Date: January 23, 2020 Subjective 01/24/2020 The patient was seen and examined in medical telemetry unit She is morbidly obese and was admitted with fever, intractable nausea vomiting and diarrhea She has been feeling a lot better since this morning but diarrhea continues Denies any fever and/or chills, nausea and or vomiting have improved 01/25/2020 Patient was seen and examined in medical telemetry unit She has been feeling a lot better and denies any symptoms as of this morning She has been ambulating in the room without any difficulty 01/26/2020 The patient was seen and examined in medical telemetry unit She has been feeling a lot better today and definitely wants to go home Remains asymptomatic and afebrile Review of Systems Review of Systems: All systems reviewed and are unremarkable except as noted below Gastrointestinal: no abdominal pain, no nausea, no vomiting and no diarrhea/loose stools Genitourinary: + urinary urgency; no dysuria Dark-colored urine Physical Exam Physical Exam: Lying in bed comfortably Constitutional: + morbidly obese; no acute distress and not ill appearing Eyes: PERRL, conjunctivae normal, anicteric sclerae ENMT: external ear and nose normal, oropharynx normal Neck: trachea midline, no thyromegaly Respiratory: normal respiratory effort; no respiratory distress Auscultation: + diminished lung sounds (Bilaterally and secondary to thick chest wall) Cardiovascular: Rate/Rhythm: regular rate and regular rhythm Heart Sounds: no murmur Gastrointestinal (Abdomen): Inspection/Auscultation: abdomen normal to inspection, + abdomen distended and normal bowel sounds Percussion/Palpation: abdomen soft; abdomen nontender Musculoskeletal: No acute arthritis involving any joints Skin: Chronic skin changes in the right leg with dry ulcerated lesion without any evidence of infection and/or inflammation. Lymphatic: no cervical or axillary lymphadenopathy Results & Data Results & Data ([facility]) Vital Signs (Past 12 Hours) Vital Signs Temp Pulse Resp BP BP Pulse Ox 01/26/20 07:23 36.9 C 65 17 134/75 95 01/26/20 03:49 36.7 C 63 20 105/64 97 01/25/20 23:04 36.9 C 67 20 109/67 96 Medications Administered Current Inpatient Medications Acetaminophen (Acetaminophen 325 Mg Tab) 650 mg PO Q4H PRN PRN Reason: Pain or Fever Stop: 02/22/20 13:56 Last Admin: 01/25/20 22:21 Dose: 650 mg Documented by: Amoxicillin/Clavulanate Potassium (Amoxicillin/Clavulanate 875 Mg Tab) [facility] [place] Stop: 02/09/20 16:59 Citalopram Hydrobromide (Citalopram 40 Mg Tab) 40 mg PO [facility] Stop: 02/23/20 08:59 Last Admin: 01/26/20 08:20 Dose: 40 mg Documented by: Heparin Sodium (Porcine) (Heparin Sod 5,000 Unit/0.5 Ml Vial) 7,500 units SQ Q8 [facility] Stop: 02/22/20 13:59 Last Admin: 01/26/20 05:12 Dose: 7,500 units Documented by: Promethazine HCl 12.5 mg/ (Sodium Chloride) 50.5 mls @ 202 mls/hr IV Q6H PRN PRN Reason: Nausea And Vomiting Stop: 02/22/20 13:56 Levothyroxine Sodium (Levothyroxine Sodium 150 Mcg Tablet) [facility] Stop: 02/23/20 06:29 Last Admin: 01/26/20 05:13 Dose: 150 mcg Documented by: Metoprolol Succinate (Metoprolol Succ 50mg Ext Rel Tab) 100 mg PO [facility] Stop: 02/23/20 08:59 Last Admin: 01/26/20 08:20 Dose: 100 mg Documented by: Morphine Sulfate (Morphine Sulfate 2 Mg/Ml Carp) 2 mg IV Q4H PRN PRN Reason: Pain Stop: 02/06/20 22:03
[2020-01-26] MEDS ORDERED: AMOXICILLIN/CLAVULANATE 875 MG TAB PO SCH (17:00)
--- NOTE | 2020-01-27 08:30 | Discharge Summary ---
Date of Service January 27, 2020 Admission HPI Per Admitting Provider Pt is 59 y/o F with PMH HTN, h/o heart block s/p pacemaker, hypothyroidism, venous insufficiency, chronic wounds to his lower legs, LAYA noncompliant with CPAP, obesity, CKD III presented to ER with complaint of N/V/D. Patient states 4 days ago started not feeling well. Complains of nausea, several episodes of vomiting. Patient states 2 days ago started with loose stools. Patient states had 1-2 episodes of diarrhea. Denies any further diarrhea. Last vomiting episode this morning. She has had decreased oral intake. Complains of tactile fevers/chills. Denies any abdominal pain, hematemesis, melena, hematochezia. Complains of generalized weakness. Reports that her chronic leg wounds have been improving since following with [place] [facility]. Patient denies any significant cough. Denies any chest pain, shortness of breath. Denies any ill contacts. Did travel to [place] on day of symptom onset. Denies diaphoresis, MONTOYA, dizziness, syncope, vision changes, neck pain, CP, SOB, orthop dre, palpitations, sore throat, choking, otalgia, rhinorrhea, paresthesias, increased extremity edema, rashes, urinary symptoms. Admission Exam Per Admitting Provider Physical Exam: General: no distress, obese Head: normocephalic, atraumatic Eyes: conjunctiva non-injected, anicteric ENT: normal inspection external ears, nose, mucous membranes dry Neck: supple, trachea midline Lungs: clear, no respiratory distress, no wheezing/rhonchi/rales CV: RRR, no murmur, obese lower extremities Abd: normal BS, protuberant secondary to adipose tissue, soft, non-tender Ext: no cyanosis or significant erythema, +venous stasis skin changes, left lower leg with wound without erythema or discharge, no calf tenderness Neuro: A&O x 3, no focal deficits noted, normal affect Skin: warm, dry, as above in extremities Principal Diagnosis E. coli bacteremia secondary to E. coli UTI, acute kidney injury on CKD, hypertension, obesity with sleep apnea Discharge Exam Constitutional + morbidly obese; no acute distress and not ill appearing Eyes PERRL, conjunctivae normal, anicteric sclerae ENMT external ear and nose normal, oropharynx normal Neck trachea midline, no thyromegaly Respiratory normal respiratory effort; no respiratory distress Auscultation: + diminished lung sounds (Bilaterally and secondary to thick chest wall) Cardiovascular Rate/Rhythm: regular rate and regular rhythm Heart Sounds: no murmur Gastrointestinal (Abdomen) Inspection/Auscultation: abdomen normal to inspection, + abdomen distended and normal bowel sounds Percussion/Palpation: abdomen soft; abdomen nontender Lymphatic no cervical or axillary lymphadenopathy Discharge Data Allergies Allergy/AdvReac Type Severity Reaction Status Date / Time cefazolin [From Anc] AdvReac Swelling Verified 01/23/20 07:59 of Lip/Tongue/Throat Consultations 01/23/20 10:58 ED Decision to Admit Stat Hospital Course (1) Gram-negative bacteremia: Pt is 59 y/o F with PMH HTN, h/o heart block s/p pacemaker, hypothyroidism, venous insufficiency, chronic wounds to his lower legs, LAYA noncompliant with CPAP, obesity, CKD III presented to ER with complaint of N/V/D. Patient states 4 days ago started not feeling well with tactile fevers/chills, weakness. C/O nausea, several episodes of vomiting. 1-2 episodes of diarrhea, none since yesterday. Denies any symptoms suggestive of UTI but urine is very dark and smelly Has had fever up to 38.6 at presentation Patient denies cough, shortness of breath, chest pain, sore throat Came out to have gram-negative bacteremia likely secondary to UTI Urine culture has been pending COVID-19 test has been negative She has been started with IV Unasyn-quinolones have been avoided due to prolonged QT Urine culture is growing gram-negative bacilli most likely going to be E. coli Continue intravenous Unasyn for now Urine culture grew E. coli which is pansensitive Discussed with pharmacist and as per recent guidelines E. coli bacteremia of this kind can be treated with oral Augmentin She will be getting Augmentin orally for the next 7 days to finish the course. She will be going home this afternoon (2) Nausea & vomiting: Possible viral gastroenteritis In ER given Toradol, 1L NSS Is associated with diarrhea Stool has been sent for C. difficile and culture Nausea vomiting have improved and restart diet as tolerated Resolved (3) Hypokalemia: K: 2.8 -In ER given 1K rider, 40 meq KCl p.o. -Add magnesium level to assess for hypomagnesemia -Replaced (4) Acute kidney injury superimposed on CKD: Likely secondary to dehydration BUN: 25, Cr: 1.9. Baseline Cr: 1.5 -Avoid nephrotoxic agents -Monitor renal functions -Renal function has been improving with creatinine 1.55 today (5) HTN (hypertension): Stable -Continue metoprolol -Hold chlorthalidone and spironolactone for now (6) History of heart block: S/P pacemaker (7) Hypothyroidism: TSH pending -Continue levothyroxine (8) Chronic wound of extremity: History of chronic lower extremity wounds. Following with [place] [facility]. Possible skin graft in future No signs or symptoms of acute wound infection at this time (9) Sleep apnea: Noncompliant to CPAP (10) Morbid obesity: BMI: 57 Lifestyle modifications recommended DVT Prophylaxis -Heparin SQ Full Code as per discussion with pt Follows with Dr Obrien for routine care Total Time Total Time Spent Total Time Spent (In Minutes): 35 minutes Total Time Includes: Examination of the Patient, Discharge Planning, Medication Reconciliation and Communication With Other Providers Discharge Plan Discharge Items Patient Disposition: Home - Self-Care Reason For Visit: N/V Discharge Diagnosis: E. coli bacteremia secondary to E. coli UTI, acute kidney injury on CKD, hypertension, obesity with sleep apnea Condition on Discharge: Good Activity: Resume your previous activity Non-emergency contact: Primary Care Provider Call non-emergency contact if: you have any medication questions and your symptoms worsen Follow-up/Referrals: Jenn Obrien MD [Primary Care Provider] - (Your doctor's office will give you a call on Tuesday with an appointment within 7 days) Diet: Heart Healthy Addtl Attending Provider Instructions: Please finish the course of antibiotic Drink adequate amount of fluid Keep your legs elevated while sleeping Pending Studies at Discharge: No Stand-Alone Forms: My [employer], Smoking Cessation Medications and DC Order Prescriptions: New amoxicillin-pot clavulanate [Augmentin] 875-125 mg Tablet 1 tab PO BIDM 7 Days Qty: 14 RF: 0 Lactinex 1 million cell tablet,chewable 1 tab PO BID Qty: 30 RF: 0 Continued acetaminophen [Tylenol Extra Strength] 500 mg Tablet 1,000 mg PO Q6H PRN (Reason: Pain) RF: 0 citalopram 40 mg tablet 40 mg PO QAM RF: 0 metoprolol succinate 100 mg tablet extended release 24 hr 100 mg PO QAM RF: 0 chlorthalidone 25 mg tablet 25 mg PO QAM RF: 0 spironolactone 25 mg tablet 25 mg PO QAM RF: 0 levothyroxine 150 mcg tablet 150 mcg PO QAM RF: 0 Discharge Orders: Discharge Order (Routine); Ordered 01/26/20 Ordered By: Isabel Scott Admission Data Admit Date/Time: 01/23/20 12:31 Attending Provider: Isabel Scott Admit Provider: Carlitos Freeman Primary Care Provider: Jenn Obrien Other Providers: Carlitos Freeman Other Interventions: Discharge Summary Assessment (RN) Last Done: 01/26/20 11:20
== END 2020-01-26 13:37 | disposition home or self-care (01) ==
LOC: ED 07:06 → SUATTDRO 12:31 → 2N 12:31 → INTOOBSV 12:31 → 2N 13:30

== ENCOUNTER 2020-10-10 23:14 | Observation (INO) ==
[2020-10-10] MEDS ORDERED: FAMOTIDINE 20MG IV PUSH 20 MG/5 ML SYR IV STA (23:29)
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
[2020-10-11 00:10] LABS: Basophils # (auto) 0.02 K/uL (0-0.2); Basophils % (auto) 0.2 %; Eosinophils # (auto) 0.34 K/uL (0-0.5); Eosinophils % (auto) 3.7 %; Hematocrit (blood only) 39.9 % (37-47); Hemoglobin 13.6 g/dL (12.0-16.0); Immature Granulocytes # (auto) 0.02 K/uL (0.00-0.02); Immature Granulocytes % (auto) 0.2 %; Lymphocytes % (auto) 24.8 %; Mean Corpuscular Hgb Conc 34.1 g/dL (32-36); Mean Corpuscular Volume 90.9 fL (80-100); Mean Platelet Volume 9.6 fL (7.4-10.4); Monocytes # (auto) 0.84 K/uL (0.11-0.59); Neutrophils # (auto) 5.77 K/uL (1.4-6.5); Neutrophils % (auto) 62.1 %; Platelet Count 269 K/uL (130-400); RDW Coefficient of Variation 13.2 % (11.5-14.5); RDW Standard Deviation 43.7 fL (36.4-46.3); Red Blood Count 4.39 M/uL (4.2-5.4); White Blood Count 9.29 K/uL (4.8-10.8)
[2020-10-11 00:32] LABS: Albumin Globulin Ratio 0.8 (0.9-2); Albumin Level 3.4 gm/dl (3.4-5.0); BUN Creatinine Ratio 13.9 (10-20); Calcium 9.2 mg/dl (8.5-10.1); Creatinine Clr Calc Pharmacy 44.6 ml/min; Est GFR (African American) 31.2 ml/min; Est GFR (Non-African American) 26.9 ml/min; Globulin 4.3 gm/dl (2.5-4.0); Potassium 2.8 mmol/L (3.5-5.1); Total Protein 7.7 gm/dl (6.4-8.2)
[2020-10-11] MEDS ORDERED: POTASSIUM CHLORIDE / WTR 10 MEQ/100 ML PLCT IV ONE (00:39)
[2020-10-11] MEDS ORDERED: SODIUM CHLORIDE 0.9% 500 ML IV ONE (00:41)
[2020-10-11 01:35] LABS: Magnesium 1.9 mg/dl (1.8-2.4)
[2020-10-11 01:57] LABS: Thyroid Stimulating Hormone 2.2 uIu/ml (0.300-4.500)
[2020-10-11] MEDS ORDERED: POTASSIUM CHLORIDE 40 MEQ in SODIUM CHLORIDE 0.9% 1000ML 1,000 ML IV STA (02:04)
[2020-10-11] MEDS ORDERED: POTASSIUM CHLORIDE CRTAB 20 MEQ TABCR PO STA ×2 (02:33→04:36)
[2020-10-11] MEDS ORDERED: AZTREONAM 2,000 MG in DEXTROSE 5% 100 ML IV STA (03:34)
[2020-10-11] MEDS ORDERED: DOXYCYCLINE HYCLATE 100 MG in DEXTROSE 5% 100 ML IV STA (03:34)
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
--- NOTE | 2020-10-11 08:04 | XRay Report ---
XR chest 1V portable HISTORY: renal failure COMPARISON: Chest 01/23/2020. FINDINGS: No pneumothorax. No pleural effusions. The heart is borderline enlarged. This remains uncha nged. The left-sided dual-chamber pacemaker. The lungs are clear. No evidence for pulmonary edema. IMPRESSION: No acute process. ACT 112: Negative or not required by law. Electronically signed by: Brandon Sosa M.D. 10/11/2020 8:03 AM
--- NOTE | 2020-10-11 08:16 | XRay Report ---
XR tibia fibula RT 2V CLINICAL HISTORY: R leg pain COMPARISON STUDY: Right tibia/fibula 05/08/2018. FINDINGS: No acute fracture or dislocation within the right tibia or fibula. Advanced degenerative ch anges within the medial knee, unchanged. There are few scattered soft tissue calcifications, unchange d. Plantar and posterior calcaneal spurs are noted. No metallic foreign bodies identified. IMPRESSION: No fracture or dislocation within the right lower leg. Stable pretibial soft tissue calc ifications which are likely vascular. ACT 112: Negative or not required by law. Electronically signed by: Brandon Sosa M.D. 10/11/2020 8:14 AM
[2020-10-11] MEDS ORDERED: ACETAMINOPHEN 325 MG TAB PO PRN (08:28)
[2020-10-11] MEDS ORDERED: diphenhydrAMINE 50 MG/ML VIAL IV PRN (08:28)
[2020-10-11] MEDS ORDERED: traMADol HCL 50 MG TABLET PO PRN (08:28)
[2020-10-11] MEDS ORDERED: PROMETHAZINE HCL 12.5 MG in SODIUM CHLORIDE 0.9% 50 ML IV PRN (08:28)
[2020-10-11] MEDS ORDERED: HYDROmorphone INJ 0.5 MG/0.5 ML SYR IV PRN (08:28)
--- NOTE | 2020-10-11 08:40 | CT Scan Report ---
CT soft tissue neck wo con HISTORY: sore throat TECHNIQUE: Multiaxial CT images of the neck were performed without contrast and reformatted in the sa gittal and coronal planes. COMPARISON STUDY: None. FINDINGS: The visualized brain parenchyma and orbits are unremarkable. The pterygopalatine fossa are well-maintained. Mild mucosal thickening within the left maxillary sinus and left sphenoid sinus. The mastoid air cells are clear. No fractures within the visualized osseous structures. The lung apices are clear. There is a left-sided pacemaker noted. Mild prevertebral edema from the C2-C5 level measur ing up to 6 mm in thickness. This does not result in significant mass effect along the hypopharynx. T here is suggestion of mild thickening of the supraglottic soft tissues. This results in mild to moder ate narrowing of the airway best seen on image 55 of 105. However, the epiglottis appears normal in t hickness. There is questionable mild thickening of the uvula. The thyroid gland is normal in size. No cervical lymphadenopathy. There is a 1.3 cm left parotid gland nodule which is stable compared to head CT. The submandibular glands are symmetric. IMPRESSION: 1. Soft tissue thickening within the supraglottic region and the uvula with mild to moderate narrowin g of the airway at the supraglottic location. 2. Mild prevertebral edema from the C2-C5 level measuring up to 6 mm in thickness without significant mass effect along the hypopharynx. This could be due to an infectious or inflammatory process. Consi guevara ENT consultation for further evaluation. 3. A stable 1.3 cm left parotid gland nodule compared to the [address] 4. These findings were called/faxed to the emergency department following dictation. ACT 112: Positive. There are findings on this exam that require communication between the performing entity and the patient following Patient Test Result Information Act ([place] Act 112) guidelines. Electronically signed by: Brandon Sosa M.D. 10/11/2020 8:39 AM
[2020-10-11] MEDS ORDERED: MAGNESIUM SULFATE / D5W 1 GM/100 ML BAG IV ONE (08:45)
[2020-10-11] MEDS ORDERED: AZTREONAM CONSULT ACTIVE PRN (08:46)
[2020-10-11] MEDS ORDERED: methylPREDNISolone 40 MG in SYRINGE 0 ML IV SCH (09:00)
[2020-10-11] MEDS ORDERED: CONSULT PHARMACY SCH (09:00)
[2020-10-11 09:50] LABS: Eosinophils # (auto) 0.01 K/uL (0-0.5); Eosinophils % (auto) 0.1 %; Hematocrit (blood only) 38.5 % (37-47); Hemoglobin 13.1 g/dL (12.0-16.0); Immature Granulocytes # (auto) 0.02 K/uL (0.00-0.02); Immature Granulocytes % (auto) 0.2 %; Lymphocytes # (auto) 0.58 K/uL (1.2-3.4); Lymphocytes % (auto) 6.8 %; Mean Corpuscular Hemoglobin 30.9 pg (25-34); Mean Corpuscular Volume 90.8 fL (80-100); Mean Platelet Volume 9.8 fL (7.4-10.4); Monocytes % (auto) 1.2 %; Neutrophils # (auto) 7.86 K/uL (1.4-6.5); Neutrophils % (auto) 91.7 %; Platelet Count 263 K/uL (130-400); RDW Coefficient of Variation 13.3 % (11.5-14.5); RDW Standard Deviation 43.9 fL (36.4-46.3); Red Blood Count 4.24 M/uL (4.2-5.4); White Blood Count 8.57 K/uL (4.8-10.8)
[2020-10-11 10:04] LABS: Estimated Average Glucose 120 mg/dl; Hemoglobin A1C 5.8 % (4.5-5.6)
[2020-10-11 10:15] LABS: BUN Creatinine Ratio 12.9 (10-20); Calcium 8.5 mg/dl (8.5-10.1); Creatinine Clr Calc Pharmacy 49.1 ml/min; Est GFR (African American) 35.1 ml/min; Est GFR (Non-African American) 30.3 ml/min; Potassium 4.4 mmol/L (3.5-5.1)
[2020-10-11] MEDS: LEVOTHYROXINE SODIUM 150 MCG TABLET PO SCH (10:15)
[2020-10-11] MEDS: CITALOPRAM 40 MG TAB PO SCH (10:15)
[2020-10-11] MEDS: METOPROLOL SUCC 50MG EXT REL TAB PO SCH (10:15)
[2020-10-11] MEDS: HEPARIN SOD 5,000 UNIT/0.5 ML VIAL SQ SCH ×3 (10:16→20:35)
[2020-10-11] MEDS: ATORVASTATIN 20 MG TAB PO SCH (10:16)
--- NOTE | 2020-10-11 10:33 | CT Scan Report ---
CT SCAN OF THE ABDOMEN AND PELVIS WITHOUT CONTRAST CLINICAL HISTORY: abd pain COMPARISON STUDY: No previous studies for comparison. TECHNIQUE: CT scan of the abdomen and pelvis was performed from the lung bases to the proximal femurs . Images are reviewed in the axial, sagittal, and coronal planes. IV contrast was not administered fo r this examination. A dose lowering technique was utilized adhering to the principles of ALARA. CT DOSE: 2102.80 mGy.cm FINDINGS: Lower chest: The heart is normal in size and configuration, without pericardial effusion. The lung ba ses and pleural spaces are clear. Liver: The unenhanced liver is normal in size, contour, and attenuation. There is no intrahepatic mike iary ductal dilatation. Gallbladder: Surgically absent. Spleen: Normal in size and attenuation. Pancreas: Unremarkable. Adrenal glands: Unremarkable. Kidneys: The unenhanced kidneys are normal in size without hydronephrosis. There is no contour deform ing renal mass lesion. No renal calculi are identified. Bowel: Mild hiatal hernia. Bowel loops are nondilated. Small duodenal diverticulum is seen. Normal ap pendix. Peritoneum: There is no intraperitoneal free air or abdominal ascites. Vasculature: The abdominal aorta is normal in course and caliber. Adenopathy: None. Pelvic viscera: Urinary bladder is fluid filled. Uterus is atrophic. A few peripherally calcified den sities are seen within lower pelvis might represent phleboliths or calcified lymph nodes. Skeletal structures: Multilevel degenerative changes of the spine. IMPRESSION: No acute intra-abdominal process. Minimal hiatal hernia. Duodenal diverticulum. Status post cholecystectomy. Normal appendix. ACT 112: Negative or not required by law. The above report was generated using voice recognition software. It may contain grammatical, syntax o r spelling errors. Electronically signed by: Katja Kumar DO 10/11/2020 10:31 AM
--- NOTE | 2020-10-11 10:42 | XRay Report ---
XR tibia fibula LT 2V CLINICAL HISTORY: L leg pain COMPARISON: None. DISCUSSION: No acute fracture or dislocation seen. Severe degenerative changes are seen within partially visualized left knee joint. Soft tissue edema a nd subcutaneous calcifications are seen. IMPRESSION: As above. ACT 112: Negative or not required by law. The above report was generated using voice recognition software. It may contain grammatical, syntax o r spelling errors. Electronically signed by: Katja Kumar DO 10/11/2020 10:41 AM
[2020-10-11] MEDS: AZTREONAM 2,000 MG in DEXTROSE 5% 100 ML IV SCH ×2 (13:19→20:33)
[2020-10-11 15:29] LABS: Appearance Urine Clear (Clear); Bacteria Urine Automated Negative (Negative); Bilirubin Urine Negative (Negative); Blood Urine 1+ (Negative); Color Urine Yellow; Epithelial Cell Urine Auto >30 /lpf (0-5); Glucose Urine UA Negative (Negative); Ketones Urine Negative (Negative); Leukocyte Esterase Urine Negative (Negative); Nitrite Urine Negative (Negative); Protein Urine Negative (Negative); Specific Gravity Urine 1.019 (1.000-1.030); Urobilinogen Urine Negative (Negative); pH Urine 5.5 (4.5-7.5)
[2020-10-11] MEDS: CETIRIZINE HCL 10 MG TABLET PO SCH (16:38)
[2020-10-11] MEDS: DOXYCYCLINE HYCLATE 100 MG CAP PO SCH (20:34)
--- NOTE | 2020-10-11 22:17 | Hospitalist Progress Note ---
Date of Service October 11, 2020 Assessment & Plan (1) Angioedema: Resolved with initial treatment on admission. Would avoid Bactrim and cephalosporins moving forward until she has seen an hose maker as outpatient. EpiPen should be given at discharge as a precaution. (2) Vasculitis: Palpable present on lower legs. Possible etiologies include but not limited to covid-19 infections (LCV), or other autoimmune vasculitides. ANCA panel, ANANT panel, hepatitis panel, cryoglobulins, complement panel, urine studies. Cont steorids and see how she responds overnight. Will need to follow-up with Rheumatology. (3) COVID-19 virus infection: continue isolation for possible reinfection. No treatment indicated at this time. (4) Hypothyroidism: Cont levothyroxine per home regimen. (5) HTN (hypertension): at goal, cont home regimen. (6) Depression: stable, cont citalopram per home regimen. (7) CKD (chronic kidney disease), stage III: at baseline, avoid nephrotoxic substances and renally dose meds as needed. (8) DVT prophylaxis: Heparin Full Code Dispo-cont to monitor on tele. Manda Baker DO [facility] Hospitalist Admission and Anticipated Discharge Date Admission Date: October 11, 2020 Subjective 60 yo F presented for throat swelling after antibiotic exposure. She reports new rash on her lower legs that began about 5 days ago. She was infected with COVID in July 2020, and is still positive on a repeat swab now but has no other known infection. She reports a provider thought she had shingles initially, then she was given antibiotics for a presumed bacterial infection. She has palpable purpura present that has spread from the left leg to the right. She denies fevers, chills, UTI symptoms, respiratory symptoms or other issues today. She is able to eat food and swallow/speak/breathe without issue. Review of Systems Review of Systems: All systems reviewed & are unremarkable except as noted in Subjective Physical Exam Physical Exam: CONSTITUTIONAL: obese, vitals as above, generally well- appearing EYES: normal conjunctivae, no scleral icterus ENT: external ear and nose normal, RESPIRATORY: clear to auscultation bilaterally, no crackles, rales or wheezes, normal respiratory effort CARDIOVASCULAR: regular rate and rhythm, S1 and 2 heard without murmurs, gallops or rubs, no JVD, no peripheral edema GASTROINTESTINAL: soft, nontender, nondistended, no guarding. MUSCULOSKELETAL: strength 5/5 throughout, head is normocephalic and atraumatic SKIN: warm and dry, palpable purpura (non-blanchable erythematous lesions) that extend down the lower half of the left and right leg and somewhat onto the top of the foot. No other lesions on the rest of the body. There are chafed areas with some drainage suggestive of a secondary bacterial infection. NEUROLOGIC: CN 2-12 grossly intact, no sensory deficit, normal cognition, normal speech, no tremor, no gross focal neuro deficit. PSYCHIATRIC: alert cooperative and oriented to person, place and time. Results & Data Results & Data ([facility]) Vital Signs (Past 12 Hours) Vital Signs Temp Pulse Resp BP BP Pulse Ox 10/11/20 20:08 36.7 C 61 17 121/70 97 10/11/20 15:08 36.6 C 76 18 137/78 97 10/11/20 11:37 36.7 C 73 119/71 97 Laboratory Results Short CBC 10/10/20 10/11/20 Range/Units 23:50 09:33 WBC 9.29 8.57 (4.8-10.8) K/uL Hgb 13.6 13.1 (12.0-16.0) g/dL Hct 39.9 38.5 (37-47) % Plt Count 269 263 (130-400) K/uL BMP 10/10/20 10/11/20 23:50 09:33 Sodium 138 139 Potassium 2.8 L D 4.4 D Chloride 103 107 Carbon Dioxide 28 23 BUN 27 H 23 H Creatinine 1.96 H D 1.78 H Glucose 113 H 248 H Calcium 9.2 8.5 Liver Function 10/10/20 Range/Units 23:50 Total Bilirubin 1.0 (0.2-1) mg/dl AST 14 L (15-37) U/L ALT 14 (12-78) U/L Alkaline Phosphatase 90 (45-117) U/L Albumin 3.4 (3.4-5.0) gm/dl Urine 10/11/20 Range/Units 15:05 Urine Color Yellow Urine Appearance Clear (Clear) Urine pH 5.5 (4.5-7.5) Ur Specific [employer] 1.019 (1.000-1.030) Urine Protein Negative (Negative) Urine Glucose (UA) Negative (Negative) Medications Administered Current Inpatient Medications Acetaminophen (Acetaminophen 325 Mg Tab) 650 mg PO Q4H PRN PRN Reason: Pain or Fever Stop: 11/10/20 08:27 Atorvastatin Calcium (Atorvastatin 20 Mg Tab) 20 mg PO DAILY [facility] Stop: 11/10/20 08:59 Last Admin: 10/11/20 10:16 Dose: 20 mg Documented by: Aztreonam (Aztreonam Consult Active) 1 ea N/A UD PRN PRN Reason: Consult Stop: 11/10/20 08:45 Cetirizine HCl (Cetirizine Hcl 10 Mg Tablet) 10 mg PO [id number] [facility] Stop: 11/10/20 16:59 Last Admin: 10/11/20 16:38 Dose: 10 mg Documented by: Citalopram Hydrobromide (Citalopram 40 Mg Tab) 40 mg PO QAM [facility] Stop: 11/10/20 08:59 Last Admin: 10/11/20 10:15 Dose: 40 mg Documented by: Diphenhydramine HCl (Diphenhydramine 50 Mg/Ml Vial) 25 mg IV Q6H PRN PRN Reason: Allergic Reaction Stop: 11/10/20 08:27 Doxycycline Hyclate (Doxycycline Hyclate 100 Mg Cap) 100 mg PO BID [facility]; Protocol Stop: 10/18/20 20:59 Last Admin: 10/11/20 20:34 Dose: 100 mg Documented by: Heparin Sodium (Porcine) (Heparin Sod 5,000 Unit/0.5 Ml Vial) 5,000 units SQ Q8 [facility] Stop: 11/10/20 08:27 Last Admin: 10/11/20 20:35 Dose: 5,000 units Documented by: Hydromorphone HCl (Hydromorphone Inj 0.5 Mg/0.5 Ml Syr) 0.5 mg IV Q3H PRN PRN Reason: Pain Stop: 10/25/20 08:27 Potassium Chloride 40 meq/ (Sodium Chloride) 1,020 mls @ 50 mls/hr IV .[id number] STA Stop: 10/11/20 22:27 Last Infusion: 10/11/20 11:03 Dose: Infused Documented by: Promethazine HCl 12.5 mg/ (Sodium Chloride) 50.5 mls @ 202 mls/hr IV Q6H PRN PRN Reason: Nausea And Vomiting Stop: 11/10/20 08:27 Aztreonam 2,000 mg/ Dextrose 110 mls @ 110 mls/hr IV Q8H [facility] Stop: 10/18/20 11:59 Last Admin: 10/11/20 20:33 Dose: 110 mls/hr Documented by: Levothyroxine Sodium (Levothyroxine Sodium 150 Mcg Tablet) 150 mcg PO DAILYBB [facility] Stop: 11/10/20 08:59 Last Admin: 10/11/20 10:15 Dose: 150 mcg Documented by: Metoprolol Succinate (Metoprolol Succ 50mg Ext Rel Tab) 100 mg PO QAM [facility] Stop: 11/10/20 08:59 Last Admin: 10/11/20 10:15 Dose: 100 mg Documented by: Prednisone (Prednisone 20 Mg Tab) 40 mg PO DAILY [facility] Stop: 11/11/20 08:59 Tramadol HCl (Tramadol Hcl 50 Mg Tablet) 25 - 50 mg PO Q4H PRN PRN Reason: Pain Stop: 11/10/20 08:27
[2020-10-12] MEDS: AZTREONAM 2,000 MG in DEXTROSE 5% 100 ML IV SCH ×3 (03:41→21:06)
[2020-10-12] MEDS: HEPARIN SOD 5,000 UNIT/0.5 ML VIAL SQ SCH ×3 (04:53→21:06)
[2020-10-12] MEDS: LEVOTHYROXINE SODIUM 150 MCG TABLET PO SCH (04:53)
[2020-10-12 05:08] LABS: Prothrombin Time 10.3 Seconds (9.0-12.0)
[2020-10-12 05:16] LABS: Albumin Level 2.9 gm/dl (3.4-5.0); BUN Creatinine Ratio 17.8 (10-20); Calcium 8.8 mg/dl (8.5-10.1); Creatinine Clr Calc Pharmacy 60.3 ml/min; Est GFR (African American) 46.9 ml/min; Est GFR (Non-African American) 40.5 ml/min; Potassium 4.8 mmol/L (3.5-5.1)
[2020-10-12 05:22] LABS: Albumin Globulin Ratio 0.7 (0.9-2); Bilirubin,Total 0.5 mg/dl (0.2-1); C Reactive Protein 1.12 mg/dl (0-0.29); Total Protein 6.9 gm/dl (6.4-8.2)
[2020-10-12 05:25] LABS: Hematocrit (blood only) 36.7 % (37-47); Hemoglobin 12.1 g/dL (12.0-16.0); Mean Corpuscular Hemoglobin 29.6 pg (25-34); Mean Corpuscular Volume 89.7 fL (80-100); Mean Platelet Volume 9.8 fL (7.4-10.4); Platelet Count 250 K/uL (130-400); RDW Coefficient of Variation 13.5 % (11.5-14.5); RDW Standard Deviation 44.2 fL (36.4-46.3); Red Blood Count 4.09 M/uL (4.2-5.4)
[2020-10-12 06:33] LABS: Appearance Urine Clear (Clear); Bacteria Urine Automated Negative (Negative); Bilirubin Urine Negative (Negative); Blood Urine 1+ (Negative); Cast Urine Automated 0 /lpf (0-5); Color Urine Yellow; Epithelial Cell Urine Auto 20-30 /lpf (0-5); Glucose Urine UA Negative (Negative); Ketones Urine Negative (Negative); Leukocyte Esterase Urine Negative (Negative); Nitrite Urine Negative (Negative); Protein Urine Negative (Negative); RBC Urine Automated 0-4 /hpf (0-4); Specific Gravity Urine 1.014 (1.000-1.030); Urobilinogen Urine Negative (Negative); pH Urine 5.5 (4.5-7.5)
[2020-10-12 06:53] LABS: Creatinine Urine Random 69.4 mg/dl; Protein Creatinine Ratio Urine 0.1 (0-0.2); Total Protein Urine Random 9.8 mg/dl (0-11.9)
[2020-10-12] MEDS: ATORVASTATIN 20 MG TAB PO SCH (07:52)
[2020-10-12] MEDS: CETIRIZINE HCL 10 MG TABLET PO SCH ×2 (07:52→16:44)
[2020-10-12] MEDS: METOPROLOL SUCC 50MG EXT REL TAB PO SCH (07:53)
[2020-10-12] MEDS: DOXYCYCLINE HYCLATE 100 MG CAP PO SCH ×2 (07:53→21:06)
[2020-10-12] MEDS: predniSONE 20 MG TAB PO SCH (07:53)
[2020-10-12] MEDS: CITALOPRAM 40 MG TAB PO SCH (07:54)
--- NOTE | 2020-10-12 23:35 | Hospitalist Progress Note ---
Date of Service October 12, 2020 Assessment & Plan (1) Angioedema: Resolved with initial treatment on admission. Would avoid Bactrim and cephalosporins moving forward until she has seen an corporate counsel as outpatient. EpiPen should be given at discharge as a precaution. (2) Vasculitis: Palpable present on lower legs. Possible etiologies include but not limited to covid-19 infections (LCV), or other autoimmune vasculitides. ANCA panel, ANANT panel, hepatitis panel, cryoglobulins, complement panel, urine studies. Some labs will be pending at discharge and will need to be followed up in the clinic. I touched base with [facility] [employer] Tender, Dr. Darío Carrillo, over the weekend who is working to set up her outpatient rheumatology follow-up in two weeks. He recommends a steroid taper including 40mg daily for 1 week, decreasing by 10mg each week until gone. (3) COVID-19 virus infection: continue isolation for possible reinfection. No treatment indicated at this time. (4) Hypothyroidism: Cont levothyroxine per home regimen. (5) HTN (hypertension): at goal, cont home regimen. (6) Depression: stable, cont citalopram per home regimen. (7) CKD (chronic kidney disease), stage III: at baseline, avoid nephrotoxic substances and renally dose meds as needed. (8) DVT prophylaxis: Heparin Full Code Dispo-to home in am after another day on IV abx and steroids. Follow-up with R heumatology in two weeks. cont steroid taper. Manda Baker DO [facility] Hospitalist Admission and Anticipated Discharge Date Admission Date: October 11, 2020 Subjective 60 yo F presented for throat swelling after antibiotic exposure. She reports new rash on her lower legs that began about 5 days ago. She was infected with COVID in July 2020, and is still positive on a repeat swab now but has no other known infection. She reports a provider thought she had shingles initially, then she was given antibiotics for a presumed bacterial infection. She has palpable purpura present that has spread from the left leg to the right. She denies fevers, chills, UTI symptoms, respiratory symptoms or other issues today. She is able to eat food and swallow/speak/breathe without issue. Review of Systems Review of Systems: All systems reviewed & are unremarkable except as noted in Subjective Physical Exam Physical Exam: CONSTITUTIONAL: obese, vitals as above, generally well- appearing EYES: normal conjunctivae, no scleral icterus ENT: external ear and nose normal, RESPIRATORY: clear to auscultation bilaterally, no crackles, rales or wheezes, normal respiratory effort CARDIOVASCULAR: regular rate and rhythm, S1 and 2 heard without murmurs, gallops or rubs, no JVD, no peripheral edema GASTROINTESTINAL: soft, nontender, nondistended, no guarding. MUSCULOSKELETAL: strength 5/5 throughout, head is normocephalic and atraumatic SKIN: warm and dry, palpable purpura (non-blanchable erythematous lesions) that extend down the lower half of the left and right leg and somewhat onto the top of the foot. No other lesions on the rest of the body. There are chafed areas with some drainage suggestive of a secondary bacterial infection. This is overall improved today NEUROLOGIC: CN 2-12 grossly intact, no sensory deficit, normal cognition, normal speech, no tremor, no gross focal neuro deficit. PSYCHIATRIC: alert cooperative and oriented to person, place and time. Results & Data Results & Data ([facility]) Vital Signs (Past 12 Hours) Vital Signs Temp Pulse Resp BP Pulse Ox 10/12/20 23:19 36.8 C 60 17 124/65 99 10/12/20 19:24 36.8 C 61 19 136/73 97 10/12/20 16:07 36.5 C 68 18 123/71 98 10/12/20 11:58 36.5 C 64 19 128/65 98 Laboratory Results Short CBC 10/12/20 Range/Units 04:40 WBC 19.60 H D (4.8-10.8) K/uL Hgb 12.1 (12.0-16.0) g/dL Hct 36.7 L (37-47) % Plt Count 250 (130-400) K/uL BMP 10/12/20 04:40 Sodium 138 Potassium 4.8 Chloride 108 H Carbon Dioxide 28 BUN 25 H Creatinine 1.40 H D Glucose 162 H Calcium 8.8 Liver Function 10/12/20 Range/Units 04:40 Total Bilirubin 0.5 D (0.2-1) mg/dl AST 20 (15-37) U/L ALT 14 (12-78) U/L Alkaline Phosphatase 76 (45-117) U/L Albumin 2.9 L (3.4-5.0) gm/dl Urine 10/12/20 Range/Units 06:15 Urine Color Yellow Urine Appearance Clear (Clear) Urine pH 5.5 (4.5-7.5) Ur Specific [employer] 1.014 (1.000-1.030) Urine Protein Negative (Negative) Urine Glucose (UA) Negative (Negative) Medications Administered Current Inpatient Medications Acetaminophen (Acetaminophen 325 Mg Tab) 650 mg PO Q4H PRN PRN Reason: Pain or Fever Stop: 11/10/20 08:27 Last Admin: 10/12/20 03:41 Dose: 650 mg Documented by: Atorvastatin Calcium (Atorvastatin 20 Mg Tab) 20 mg PO DAILY [facility] Stop: 11/10/20 08:59 Last Admin: 10/12/20 07:52 Dose: 20 mg Documented by: Aztreonam (Aztreonam Consult Active) 1 ea N/A UD PRN PRN Reason: Consult Stop: 11/10/20 08:45 Cetirizine HCl (Cetirizine Hcl 10 Mg Tablet) 10 mg PO [id number] [facility] Stop: 11/10/20 16:59 Last Admin: 10/12/20 16:44 Dose: 10 mg Documented by: Citalopram Hydrobromide (Citalopram 40 Mg Tab) 40 mg PO QAM [facility] Stop: 11/10/20 08:59 Last Admin: 10/12/20 07:54 Dose: 40 mg Documented by: Diphenhydramine HCl (Diphenhydramine 50 Mg/Ml Vial) 25 mg IV Q6H PRN PRN Reason: Allergic Reaction Stop: 11/10/20 08:27 Doxycycline Hyclate (Doxycycline Hyclate 100 Mg Cap) 100 mg PO BID [facility]; Protocol Stop: 10/18/20 20:59 Last Admin: 10/12/20 21:06 Dose: 100 mg Documented by: Heparin Sodium (Porcine) (Heparin Sod 5,000 Unit/0.5 Ml Vial) 5,000 units SQ Q8 [facility] Stop: 11/10/20 08:27 Last Admin: 10/12/20 21:06 Dose: 5,000 units Documented by: Hydromorphone HCl (Hydromorphone Inj 0.5 Mg/0.5 Ml Syr) 0.5 mg IV Q3H PRN PRN Reason: Pain Stop: 10/25/20 08:27 Promethazine HCl 12.5 mg/ (Sodium Chloride) 50.5 mls @ 202 mls/hr IV Q6H PRN PRN Reason: Nausea And Vomiting Stop: 11/10/20 08:27 Aztreonam 2,000 mg/ Dextrose 110 mls @ 110 mls/hr IV Q8H [facility] Stop: 10/18/20 11:59 Last Infusion: 10/12/20 22:20 Dose: Infused Documented by: Levothyroxine Sodium (Levothyroxine Sodium 150 Mcg Tablet) 150 mcg PO DAILYBB [facility] Stop: 11/10/20 08:59 Last Admin: 10/12/20 04:53 Dose: 150 mcg Documented by: Metoprolol Succinate (Metoprolol Succ 50mg Ext Rel Tab) 100 mg PO QAM [facility] Stop: 11/10/20 08:59 Last Admin: 10/12/20 07:53 Dose: 100 mg Documented by: Prednisone (Prednisone 20 Mg Tab) 40 mg PO DAILY [facility] Stop: 11/11/20 08:59 Last Admin: 10/12/20 07:53 Dose: 40 mg Documented by: Tramadol HCl (Tramadol Hcl 50 Mg Tablet) 25 - 50 mg PO Q4H PRN PRN Reason: Pain Stop: 11/10/20 08:27
[2020-10-13] MEDS: AZTREONAM 2,000 MG in DEXTROSE 5% 100 ML IV SCH ×2 (04:40→12:09)
[2020-10-13] MEDS: HEPARIN SOD 5,000 UNIT/0.5 ML VIAL SQ SCH ×2 (04:42→14:36)
[2020-10-13] MEDS: LEVOTHYROXINE SODIUM 150 MCG TABLET PO SCH (06:05)
[2020-10-13 06:32] LABS: Basophils # (auto) 0.01 K/uL (0-0.2); Basophils % (auto) 0.1 %; Eosinophils # (auto) 0.01 K/uL (0-0.5); Eosinophils % (auto) 0.1 %; Hematocrit (blood only) 35.3 % (37-47); Hemoglobin 11.5 g/dL (12.0-16.0); Immature Granulocytes # (auto) 0.07 K/uL (0.00-0.02); Immature Granulocytes % (auto) 0.5 %; Lymphocytes # (auto) 2.72 K/uL (1.2-3.4); Lymphocytes % (auto) 19.3 %; Mean Corpuscular Hemoglobin 30.3 pg (25-34); Mean Corpuscular Hgb Conc 32.6 g/dL (32-36); Mean Corpuscular Volume 93.1 fL (80-100); Mean Platelet Volume 9.7 fL (7.4-10.4); Monocytes # (auto) 0.82 K/uL (0.11-0.59); Monocytes % (auto) 5.8 %; Neutrophils # (auto) 10.47 K/uL (1.4-6.5); Neutrophils % (auto) 74.2 %; Platelet Count 277 K/uL (130-400); RDW Coefficient of Variation 13.9 % (11.5-14.5); RDW Standard Deviation 47.2 fL (36.4-46.3); Red Blood Count 3.79 M/uL (4.2-5.4)
[2020-10-13 07:24] LABS: BUN Creatinine Ratio 22.7 (10-20); Calcium 8.4 mg/dl (8.5-10.1); Creatinine Clr Calc Pharmacy 61.6 ml/min; Est GFR (African American) 47.7 ml/min; Est GFR (Non-African American) 41.2 ml/min
[2020-10-13] MEDS: ATORVASTATIN 20 MG TAB PO SCH (07:57)
[2020-10-13] MEDS: DOXYCYCLINE HYCLATE 100 MG CAP PO SCH (07:58)
[2020-10-13] MEDS: METOPROLOL SUCC 50MG EXT REL TAB PO SCH (07:58)
[2020-10-13] MEDS: CITALOPRAM 40 MG TAB PO SCH (07:59)
[2020-10-13] MEDS: predniSONE 20 MG TAB PO SCH (07:59)
[2020-10-13] MEDS: CETIRIZINE HCL 10 MG TABLET PO SCH (08:00)
[2020-10-13 09:16] LABS: Hepatitis B Surf Ag Rflx Conf Neg (Neg)
[2020-10-13 09:45] LABS: Hepatitis C IgG 13Yrs+Old_Rflx Neg (Neg)
--- NOTE | 2020-10-13 13:35 | Discharge Summary ---
Date of Service October 13, 2020 Admission HPI Per Admitting Provider History obtained from patient and records. Medical history significant for chronic systolic heart failure secondary to nonischemic cardiomyopathy (EF 35 to 39%, TTE 2020) third-degree AV block status post PPM, hypertension, LAYA (CPAP intolerance), CRI (baseline creatinine 1.5 ), hypothyroidism, chronic venous insufficiency/lymphedema, history right knee wound infection status post surgery/antibiotic Rx. Last confinement January 2020 for E. coli UTI/bacteremia. 10 days ago, patient noted left lower leg blisters and itchiness. Transient diarrheal illness. Poor appetite as per patient. Outpatient treatment with Valtrex for possible shingles. Left leg rash noted to get worse later resulting in blisters on both legs with rupture and yellow-green drainage. Increased leg swelling. No fever, no chills. No fluid retention as per patient although abdomen felt full. Patient seen at PCPs office 2 days ago. Patient prescribed Bactrim and Keflex for bilateral leg cellulitis. Initial wound CS growth Staph aureus, sensitivity pending Worsening bilateral leg pain and swelling after first dose of Keflex. Patient seen at the ER yesterday morning for evaluation. No DVT on lower extremity Dopplers. Patient subsequently discharged home. Patient took both Keflex and Bactrim before she went to sleep yesterday morning after getting home from the emergency room. Patient woke up some throat itchiness around noontime. No chest pain, no S OB. Around 11 PM last night, patient noted progressive lip swelling and left throat swelling with some shortness of breath. Voice sounding funny as per patient with minmal tongue swelling as per patient. No new rashes noted. No chest pain. Minimal achy abdominal discomfort and firmness as per patient. Some improvement of lip and throat swelling with Benadryl given by patient sister. EMS summoned by patient family. Benadryl, Solu-Medrol, IM epinephrine administered at home which led to dramatic improvement of symptoms. Lip/tongue swelling episode in August 2018 after right leg wound drainage procedure at [facility] which responded with Benadryl. Possible allergic reaction to Ancef as per anesthesiologist note. Patient currently feeling much better at the ER but still complaining of throat discomfort. Medical History as above July 2020 COVID-19 respiratory infection improved with outpatient treatment. Surgical History : PPM, BTL, kidney stone removal, Moh's skin cancer surgery, cholecystectomy, bone debridement Family History : Breast cancer, heart disease, lung cancer Personal/Social history : Non-smoker, occasional EtOH intake, disabled Admission Exam Per Admitting Provider GENERAL: Comfortable, morbidly obese, no stridor, no respiratory distress SKIN: Normal color, warm HEENT: Bespectacled, [place] palpebral conjunctivae, no ptosis, dry buccal mucosa, posterior pharyngeal wall swelling NECK : Supple, short neck, no tenderness CHEST : CTA, no tenderness HEART : RRR, no obvious murmurs ABDOMEN: Marked distention, nontender EXTREMITIES : Bilateral LE swelling with erythema and tenderness with ulcerated wound with overlying black crusting NEUROLOGIC : Coherent, no facial asymmetry, no other gross focality Principal Diagnosis Angioedema Lower extremity cellulitis Discharge Exam General: A&Ox3 HENT: NCAT, MMM, EOMI Eyes: PERRLA Neck: Supple, normal range of motion CVS: normal rate and rhythm Resp: b/l good breath sounds Abdomen: Soft, ND/NT, +BS Extremities: B/L LE ceullutiis noted, imrpved per patient Neuro: face symmetric, no focal deficit Skin: warm and dry, no rashes/lesions/errythema MSK: normal ROM, no joint swelling/erythema Discharge Data Allergies Allergy/AdvReac Type Severity Reaction Status Date / Time sulfamethoxazole Allergy Severe throat Verified 10/11/20 03:34 [From Bactrim] swelling trimethoprim [From Bactrim] Allergy Severe throat Verified 10/11/20 03:34 swelling cefazolin [From Ancef] AdvReac Swelling Verified 10/10/20 23:41 of Lip/Tongue/Throat Consultations 10/11/20 00:42 ED Decision to Admit Stat Ordered Studies 10/11/20 03:24 CT abd pelvis wo con Urgent CT soft tissue neck wo con Urgent Hospital Course (1) Angioedema: Hemodynamically doing okay this morning. Currently on room air and is doing fine. EpiPen sent at discharge. Follow-up with setup operator as an outpatient. Would avoid Bactrim/cephalosporins. Resolved with initial treatment on admission. Would avoid Bactrim and cephalosporins moving forward until she has seen an setup operator as outpatient. EpiPen should be given at discharge as a precaution. (2) Vasculitis: Palpable present on lower legs. Possible etiologies include but not limited to covid-19 infections (LCV), or other autoimmune vasculitides. ANCA panel, ANANT panel, hepatitis panel, cryoglobulins, complement panel, urine studies. Patient will follow up with rheumatology as an outpatient. Patient was discharged on prednisone taper. Prednisone: 4 tablets/day for 6 more days followed by 3 tablets/day for 7 more days followed by 2 tablets/day for 7 days followed by 1 tablet/day for 7 days. (3) COVID-19 virus infection: continue isolation for possible reinfection. No treatment indicated at this time. (4) Hypothyroidism: Cont levothyroxine per home regimen. (5) HTN (hypertension): at goal, cont home regimen. (6) Depression: stable, cont citalopram per home regimen. (7) CKD (chronic kidney disease), stage III: at baseline, avoid nephrotoxic substances and renally dose meds as needed. Total Time Total Time Spent Total Time Spent (In Minutes): 35 Discharge Plan Discharge Items Patient Disposition: Home - Self-Care Reason For Visit: upper airway obstruction,arf ckd Discharge Diagnosis: Angioedema Cellulitis Activity: Resume your previous activity Non-emergency contact: Primary Care Provider Call non-emergency contact if: your symptoms worsen Follow-up/Referrals: Marychuy Cheema MD [Primary Care Provider] - (Date & Time 10/16/2020 1:40 PM Provider Candace Cheema MD Department Family Medicine [facility] PLEASE NOTE THAT THIS IS A TELEPHONE APPOINTMENT. YOUR PHYSICIAN WILL CALL YOU AT THE APPOINTMENT TIME. IF YOU HAVE ANY QUESTIONS REGARDING THIS APPOINTMENT, PLEASE CALL ) Diet: Heart Healthy Addtl Attending Provider Instructions: Follow-up with your primary care physician within 1 week. An appointment has been requested. Please follow-up with rheumatology as an outpatient. An appointment has been requested. Prednisone regimen: 4 tablets/day for 6 more days followed by 3 tablets/day for 7 more days followed by 2 tablets/day for 7 days followed by 1 tablet/day for 7 days. Pending Studies at Discharge: No Stand-Alone Forms: [employer], Smoking Cessation Medications and DC Order Prescriptions: New prednisone 10 mg tablet 40 mg PO DAILY Qty: 70 RF: 0 clindamycin HCl 300 mg capsule 300 mg PO Q8H 75 Days Qty: 225 RF: 0 epinephrine [EpiPen 2-Robby] 0.3 mg/0.3 mL auto-injector 0.3 mg IM Q4H PRN (Reason: anaphylaxis) Qty: 1 RF: 0 Continued acetaminophen [Tylenol Extra Strength] 500 mg Tablet 1,000 mg PO Q6H PRN (Reason: Pain) RF: 0 citalopram 40 mg tablet 40 mg PO QAM RF: 0 metoprolol succinate 100 mg tablet extended release 24 hr 100 mg PO QAM RF: 0 chlorthalidone 25 mg tablet 25 mg PO QAM RF: 0 spironolactone 25 mg tablet 25 mg PO QAM RF: 0 levothyroxine 150 mcg tablet 150 mcg PO QAM RF: 0 atorvastatin 20 mg tablet 20 mg PO DAILY RF: 0 sulfamethoxazole-trimethoprim 800-160 mg tablet 1 tab PO BID RF: 0 cephalexin 500 mg capsule 500 mg PO QID RF: 0 potassium chloride 10 mEq tablet,ER particles/crystals 10 meq PO DAILY RF: 0 Discharge Orders: Discharge Order (Routine); Ordered 10/13/20 Ordered By: Dm Sorenson Admission Data Admit Date/Time: 10/11/20 05:15 Attending Provider: Dm Sorenson Admit Provider: Gilmar Lizarraga Primary Care Provider: Marychuy Cheema Other Providers: Gilmar Lizarraga
== END 2020-10-13 16:48 | disposition home or self-care (01) | DRG 205 ==
LOC: ED 23:14 → INTOOBSV 10-11 05:15 → 2S 10-11 05:15 → SUATTDRO 10-11 05:15 → 2S 10-11 08:00

== ENCOUNTER 2024-03-06 13:48 | Inpatient (IN) ==
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
--- NOTE | 2024-03-06 14:48 | XRay Report ---
XR chest 1V portable HISTORY: 63 years-old Female cough, fall acute chest and right shoulder pain status post fall COMPARISON: Right clavicle radiographs of same day, chest radiograph 07/29/2023 TECHNIQUE: Supine AP view of the chest FINDINGS: Cardiac silhouette is enlarged. Left subclavian pacer. No pneumothorax, pleural effusion or airspace consolidation. Degenerative changes of the shoulders and spine. IMPRESSION: Cardiomegaly without acute process. ACT 112: Negative or not required by law. The above report was generated using voice recognition software. It may contain grammatical, syntax o r spelling errors. Electronically signed by: Ezekiel Snell M.D. 03/06/2024 2:47 PM
--- NOTE | 2024-03-06 14:50 | XRay Report ---
XR humerus RT 2V CLINICAL HISTORY: Right shoulder pain following fall. COMPARISON: None FINDINGS: There is an acute comminuted minimally displaced right humeral head and neck fracture. Gre ater tuberosity is slightly displaced. No distal right humeral fracture is present. Alignment of the right acromioclavicular and glenohumeral joints is anatomic. IMPRESSION: Acute comminuted minimally displaced right humeral head and neck fracture. ACT 112: Negative or not required by law. Electronically signed by: Jacob Goldstein M.D. 03/06/2024 2:49 PM
--- NOTE | 2024-03-06 14:50 | XRay Report ---
XR shoulder RT min 2V routine, XR clavicle 2 view RT CLINICAL HISTORY: fall, pain TECHNIQUE: 3 views of the right shoulder and 2 views of the clavicle were obtained. Comparison: None available at the time of this dictation. FINDINGS: There is a minimally displaced fracture of the right humeral head/neck. Joint spaces are well-preserv ed. Soft tissue swelling is seen about the shoulder. The visualized portions of the lungs are clear. IMPRESSION: Minimally displaced fracture of the right humeral head/neck and associated soft tissue swelling. ACT 112: Negative or not required by law. Electronically signed by: Addison Rodriges M.D. 03/06/2024 2:49 PM
[2024-03-06] MEDS: MoRPHine SULFATE 4 MG/ML 1 ML CARP\\VIAL IV STA (15:02)
--- NOTE | 2024-03-06 15:04 | CT Scan Report ---
CT OF THE CERVICAL SPINE WITHOUT CONTRAST CLINICAL HISTORY: fall, pain COMPARISON STUDY: Neck CT October 11, 2020. TECHNIQUE: Helical axial images of the cervical spine were obtained without IV contrast. Sagittal a nd coronal reconstructions were viewed. Automated exposure control was utilized for the study. A do se lowering technique was utilized adhering to the principles of ALARA. FINDINGS: Reversal of the cervical lordosis is unchanged since prior neck CT. Moderate multilevel deg enerative disc disease and facet arthrosis is present. Vertebral body heights are maintained. No acut e cervical spine fracture or subluxation is present. There is no prevertebral edema. Facet joints are intact. Sphenoid sinus opacification is better depicted on the head CT. Left subclavian pacer is not ed on the laboratory technical specialist image as well as an acute mildly displaced right humeral head and neck fracture. IMPRESSION: No acute cervical spine fracture or subluxation. ACT 112: Negative or not required by law. Electronically signed by: Jacob Goldstein M.D. 03/06/2024 3:03 PM
[2024-03-06] MEDS: ONDANSETRON INJ 2 MG/ML 2 ML VIAL IV STA (15:05)
[2024-03-06] MEDS: KETOROLAC TROMETHAMINE 15 MG/ML VIAL IV STA (15:07)
--- NOTE | 2024-03-06 15:08 | CT Scan Report ---
CT head/brain wo con CLINICAL HISTORY: 63 years-old Female with fall, hit head. Acute head trauma status post fall TECHNIQUE: Multiple axial CT images of the head were obtained without contrast. A dose lowering tech nique was utilized adhering to the principles of ALARA. COMPARISON: CT cervical spine of same day, head CT 12/24/2013 FINDINGS: No acute intracranial hemorrhage, midline shift, intracranial mass, hydrocephalus, territorial ischem ia or abnormal extra-axial collection. Involutional changes with mild white matter hypodensities sugg estive of chronic microvascular ischemic disease. Calcifications of the falx cerebri. The calvarium is intact. Hyperostosis frontalis interna. Severe mucosal thickening of the ethmoid air cells. Moderate thickening of the paranasal sinuses. Trace mastoid effusions. Unremarkable soft tiss ues. Small right frontal scalp contusion on image 18. IMPRESSION: 1. No acute intracranial abnormality or calvarial fracture. 2. Small right scalp contusion. 3. Paranasal sinus disease as above. ACT 112: Negative or not required by law. The above report was generated using voice recognition software. It may contain grammatical, syntax o r spelling errors. Electronically signed by: Ezekiel Snell M.D. 03/06/2024 3:06 PM
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
[2024-03-06] MEDS ORDERED: MAGNESIUM HYDROXIDE SUSP 30 ML UDC PO PRN (17:03)
[2024-03-06] MEDS ORDERED: POLYETHYLENE (MIRALAX) 17 GM PACK PO PRN (17:03)
[2024-03-06] MEDS ORDERED: ONDANSETRON INJ 2 MG/ML 2 ML VIAL IV PRN (17:03)
[2024-03-06 17:11] LABS: Hematocrit (blood only) 39.7 % (37.0-47.0); Hemoglobin 13.3 g/dl (12.0-16.0); Mean Corpuscular Hgb Conc 33.5 g/dL (32.0-36.0); Mean Corpuscular Volume 89.4 fL (80.0-100.0); Mean Platelet Volume 9.9 fL (9.4-12.4); Platelet Count 256 K/uL (130-400); RDW Coefficient of Variation 13.2 % (11.5-14.5); RDW Standard Deviation 43.6 fL (36.4-46.3); Red Blood Count 4.44 M/uL (4.20-5.40); White Blood Count 12.71 K/ul (4.8-10.8)
[2024-03-06 17:24] LABS: BUN Creatinine Ratio 15.1 (10-20); Calcium 9.5 mg/dl (8.6-10.3); Creatinine Clr Calc Pharmacy 50.1 ml/min
[2024-03-06 17:49] LABS: Adenovirus PCR Not Detected (NotDetected); Bordetella parapertussis PCR Not Detected (NotDetected); Bordetella pertussis PCR Not Detected (NotDetected); Chlamydia pneumoniae PCR Not Detected (NotDetected); Coronavirus 229E PCR Not Detected (NotDetected); Coronavirus CoV-2 (COVID19)PCR DETECTED (NotDetected); Coronavirus HKU1 PCR Not Detected (NotDetected); Coronavirus NL63 PCR Not Detected (NotDetected); Coronavirus OC43PCR Not Detected (NotDetected); Human Metapneumovirus PCR Not Detected (NotDetected); Influenza A PCR Not Detected (NotDetected); Influenza B PCR Not Detected (NotDetected); Mycoplasma pneumoniae PCR Not Detected (NotDetected); Parainfluenza Virus 1 PCR Not Detected (NotDetected); Parainfluenza Virus 2 PCR Not Detected (NotDetected); Parainfluenza Virus 3 PCR Not Detected (NotDetected); Parainfluenza Virus 4 PCR Not Detected (NotDetected); Respiratory Syncytial VirusPCR Not Detected (NotDetected); Rhinovirus/Enterovirus PCR Not Detected (NotDetected)
[2024-03-06] MEDS: ACETAMINOPHEN 325 MG TAB PO PRN (18:41)
[2024-03-06] MEDS: MoRPHine SULFATE 2 MG/ML CARP IV PRN (18:41)
[2024-03-06] MEDS: DOXYCYCLINE HYCLATE 100 MG CAP PO SCH (21:43)
[2024-03-06] MEDS: guaiFENesin 600 MG TABCR PO SCH (21:43)
[2024-03-06] MEDS: LACTATED RINGER'S 500 ML IV ONE (21:57)
[2024-03-06] MEDS: OFLOXACIN 0.3% 75 DROPS/5 ML BTL OPL SCH (22:20)
[2024-03-06] MEDS: prednisoLONE acetate 1% OP SUSP 5 ML BTL OPL SCH (22:20)
[2024-03-06] MEDS: KETOROLAC 0.5% OP SOLN 5 ML BTL OPL SCH (22:20)
[2024-03-07] MEDS: oxyCODONE/ACETAMINOPHEN 5mg/325mg TAB PO PRN (01:19)
[2024-03-07] MEDS: LEVOTHYROXINE SODIUM 150 MCG TABLET PO SCH (05:58)
[2024-03-07 06:44] LABS: Appearance Urine Clear (Clear); Bacteria Urine Automated 1+ (None Seen); Bilirubin Urine 1+ (Negative); Blood Urine Negative (Negative); Calcium Oxalate Crystals Urine Present (None Prsent); Cast Urine Automated >20 /lpf (0-2); Color Urine Dark Yellow; Glucose Urine UA Negative (Negative); Ketones Urine Trace (Negative); Leukocyte Esterase Urine Negative (Negative); Mucus Urine Present (None Prsent); Nitrite Urine Negative (Negative); Protein Urine Trace (Negative); RBC Urine Automated 0-2 /hpf (0-2); Specific Gravity Urine 1.023 (1.000-1.030); Urobilinogen Urine Positive (Negative); WBC Urine Automated 0-5 /hpf (0-5); pH Urine 5.5 (4.5-7.5)
[2024-03-07 08:41] LABS: BUN Creatinine Ratio 16.8 (10-20); Calcium 8.9 mg/dl (8.6-10.3); Creatinine Clr Calc Pharmacy 40.6 ml/min; Magnesium 1.8 mg/dl (1.7-2.4); Phosphorus 4.4 mg/dl (2.5-4.9); Potassium 4.1 mmol/L (3.5-5.1)
[2024-03-07 08:43] LABS: Hematocrit (blood only) 36.2 % (37.0-47.0); Mean Corpuscular Hemoglobin 30.7 pg (25.0-34.0); Mean Corpuscular Hgb Conc 33.1 g/dL (32.0-36.0); Mean Corpuscular Volume 92.6 fL (80.0-100.0); Mean Platelet Volume 9.9 fL (9.4-12.4); Platelet Count 224 K/uL (130-400); RDW Coefficient of Variation 13.6 % (11.5-14.5); RDW Standard Deviation 46.3 fL (36.4-46.3); Red Blood Count 3.91 M/uL (4.20-5.40); White Blood Count 8.05 K/ul (4.8-10.8)
[2024-03-07] MEDS: allopurinoL 100 MG TAB PO SCH (08:55)
[2024-03-07] MEDS: ATORVASTATIN 20 MG TAB PO SCH (08:55)
[2024-03-07] MEDS: CITALOPRAM 40 MG TAB PO SCH (08:55)
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
--- NOTE | 2024-03-07 14:25 | Hospitalist Progress Note ---
Date of Service March 07, 2024 Assessment & Plan (1) Fall: (2) Right humeral fracture: (3) COVID-19: Plan Vianney Serrato is a 63y/o F with PMHx significant for acquired hypothyroidism, pulmonary nodule, severe LAYA on CPAP, COPD, cardiac conduction system disease s/p pacemaker placement, chronic morbid obesity, chronic BLE venous insufficiency, leukocytoclastic vasculitis, chronic heart failure with preserved ejection fraction, HTN, dyslipidemia, constipation, CKD stage III, BLE lymphedema, osteoarthritis and anxiety who presented to the ED via EMS for evaluation of right shoulder pain after sustaining a fall and was found to have a right humeral head/neck fracture. Right Humeral Fracture S/P Fall: Shoulder XR: Minimally displaced fracture of the right humeral head/neck and associated soft tissue swelling. Ortho consulted- nonsurgical, sling in place on RUE at all times, she can undo neck strap for comfort when seated, encourage elevation. She can do ROM of fingers, wrist and elbow as tolerated. She may use Right hand for light daily activites Fx can take 8-12 weeks to heal she will need ortho f/u in 2 weeks and repeat xrays HTN: Patient has been mildly hypotensive since arrival to the ED; her BP was 1 05/55 when she was seen in the ED. Will hold her home BP medications for now. Cough, Sinus Congestion/URI - COVID POSITIVE: Patient with an ongoing productive cough, sinus congestion for about a week. WBC 12k. Biofire positive for COVID-19. Head CT mentions paranasal sinus disease. Will start Mucinex and 5-day course of po doxycycline, otherwise asymptomatic Acute on chronic CKD Stage III: Cr 1.59 on admission, baseline Cr ~1.3-1.5 per chart review. Encouraged po fluid intake. Cr 1.91 today, likely in setting of toradol in ED yesterday and some hypotension will give gentle IVF x 24hr and repeat in a.m. Other Chronic Medical Conditions: Hypothyroidism, dyslipidemia, gout --> Can continue home medications for these specific conditions. Can also continue her home eye drops, CPAP HS for severe LAYA. DVT Prophylaxis: SQ Heparin Code Status: FULL CODE PCP: Candace Cheema MD Disposition: Admission in Med/Surg Patient seen in collaboration with Dr. Scott. Please see addendum. I spent a total of 46 minutes coordinating, documenting, and providing care for this patient excluding time spent in the performance of separately billed services. This included personally reviewing all current laboratories and imaging studies, medical reconciliation, outpatient chart review and discussion with specialists. Admission and Anticipated Discharge Date Admission Date: March 06, 2024 Supervising Physician Co-Signing Physician Notes 63y/o F with PMHx significant for acquired hypothyroidism, pulmonary nodule, severe LAYA on CPAP, COPD, cardiac conduction system disease s/p pacemaker placement, chronic morbid obesity, chronic BLE venous insufficiency, leukocytoclastic vasculitis, chronic heart failure with preserved ejection fraction, HTN, dyslipidemia, constipation, CKD stage III, BLE lymphedema, osteoarthritis and anxiety who presented to the ED 03/06 via EMS for evaluation of right shoulder pain after sustaining a fall and was found to have a right humeral head/neck fracture. She is being managed for the following: Right Humeral Fracture S/P Fall: Admitting Shoulder XR: Minimally displaced fracture of the right humeral head/neck and associated soft tissue swelling. Orthopedics evaluated, nonsurgical management for now, RUE in sling, follow-up orthopedics in 10 to 14 days with repeat x-ray of the right humerus. PT/OT, ongoing pain management. Will need rehab. History of hypertension: Hypotensive at presentation, holding BP meds And metoprolol. Urinalysis equivocal, urine culture pending, CXR with no signs of infection. Patient is on doxycycline for possible bronchitis, closely monitor blood pressure. 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 Respiratory BioFire positive for COVID-19. CT head with paranasal sinus disease. Started on doxycycline 03/06, leukocytosis noted at admission downtrending. Acute on chronic CKD Stage III: baseline creatinine of 1.3-1.5, admitting creatinine of 1.59, patient with poor p.o. intake, creatinine today 1.91 ISO poor p.o. intake/hypotension. Will give IV fluid, repeat labs in AM. Avoid nephrotoxic. Aldactone and chlorthalidone on hold. Other Chronic Medical Conditions: Hypothyroidism, dyslipidemia, gout --> Can continue home medications for these specific conditions. Can also continue her home eye drops, CPAP HS for severe LAYA. DVT Prophylaxis: SQ Heparin Code Status: FULL CODE PCP: Candace Cheema MD Disposition: PT/OT, likely will need rehab. On exam: Right upper extremity in sling, obese, on room air. Rest of the examination as above. Time spent: 25 minutes. Subjective NAEO. She denies respiratory sx. She reports she lives with her and at baseline ambulates by her self. Denies f/c/s, chest pain, sob, n/v/d. Review of Systems Review of Systems: All systems reviewed & are unremarkable except as noted in HPI & below Physical Exam 2 Physical Exam: Gen: WD/WN, obese, F NAD, A&O x3 HEENT: Normocephalic, atraumatic, conjunctivae moist, sclerae anicteric, mucous membranes moist. Lung: Clear to Auscultation bilaterally, no wheezes/rales/rhonchi Heart: Regular rate, regular rhythm, no murmurs, rubs, or gallops Abdomen: Soft, NT, ND +BS x 4 Extremities:obese lower ext, RUE in sling, NVI distally Skin: Warm, no rash, negative turgor. Results & Data Results & Data Vital Signs (Past 12 Hours) Vital Signs Temp Pulse Resp BP Pulse Ox Pulse Ox O2 Del Method 03/07/24 13:41 96 03/07/24 11:11 96 03/07/24 10:55 Room Air 03/07/24 08:54 36.5 C 61 18 95/65 L 99 Room Air O2 Flow Rate 03/07/24 13:41 0 03/07/24 11:11 03/07/24 10:55 03/07/24 08:54 Laboratory Results Short CBC 03/06/24 03/07/24 Range/Units 16:46 07:54 WBC 12.71 H 8.05 (4.8-10.8) K/ul Hgb 13.3 12.0 (12.0-16.0) g/dl Hct 39.7 36.2 L (37.0-47.0) % Plt Count 256 224 (130-400) K/uL BMP 03/06/24 03/07/24 16:46 07:54 Sodium 137 139 Potassium 4.0 4.1 Chloride 102 103 Carbon Dioxide 28 32 BUN 24 H 32 H Creatinine 1.59 H 1.91 H D Glucose 93 102 H Calcium 9.5 8.9 Urine 10/30/24 Range/Units 06:15 Urine Color Dark Yellow Urine Appearance Clear (Clear) Urine pH 5.5 (4.5-7.5) Ur Specific [place] 1.023 (1.000-1.030) Urine Protein Trace H (Negative) Urine Glucose (UA) Negative (Negative) Medications Administered Current Inpatient Medications Acetaminophen (Acetaminophen 325 Mg Tab) 650 mg PO Q4H PRN PRN Reason: pain/fever Stop: 04/05/24 17:02 Last Admin: 03/06/24 18:41 Dose: 650 mg Allopurinol (Allopurinol 100 Mg Tab) [facility] [place] Stop: 04/06/24 08:59 Last Admin: 03/07/24 08:55 Dose: 200 mg Atorvastatin Calcium (Atorvastatin 20 Mg Tab) 20 mg PO QAM [facility] Stop: 04/06/24 08:59 Last Admin: 03/07/24 08:55 Dose: 20 mg Citalopram Hydrobromide (Citalopram 40 Mg Tab) [facility] [place] Stop: 04/06/24 08:59 Last Admin: 03/07/24 08:55 Dose: 40 mg Doxycycline Hyclate (Doxycycline Hyclate 100 Mg Cap) 100 mg PO BID [facility] Stop: 03/11/24 09:01 Last Admin: 03/07/24 08:55 Dose: 100 mg Guaifenesin (Guaifenesin 600 Mg Tabcr) 1,200 mg PO Q12 [facility] Stop: 04/05/24 20:59 Last Admin: 03/07/24 08:56 Dose: 1,200 mg Ketorolac Tromethamine (Ketorolac 0.5% Op Soln 5 Ml Btl) 1 drops OPL QID [facility] Stop: 04/05/24 20:59 Last Admin: 03/07/24 12:24 Dose: Not Given Levothyroxine Sodium (Levothyroxine Sodium 150 Mcg Tablet) 150 mcg PO DAILYBB [facility] Stop: 04/06/24 06:29 Last Admin: 03/07/24 05:58 Dose: 150 mcg Magnesium Hydroxide (Magnesium Hydroxide Susp 30 Ml Udc) 30 ml PO Q6H PRN PRN Reason: Constipation Stop: 04/05/24 17:02 Morphine Sulfate (Morphine Sulfate 2 Mg/Ml Carp) 2 mg IV Q6H PRN PRN Reason: Severe Pain (Scale 7, 8, 9,10) Stop: 03/20/24 17:34 Last Admin: 03/06/24 18:41 Dose: 2 mg Ofloxacin (Ofloxacin 0.3% 75 Drops/5 Ml Btl) 1 drops OPL QID [facility] Stop: 03/16/24 20:59 Last Admin: 03/07/24 12:24 Dose: Not Given Ondansetron HCl (Ondansetron Inj 2 Mg/Ml 2 Ml Vial) 4 mg IV Q6H PRN PRN Reason: Nausea Stop: 04/05/24 17:02 Oxycodone/Acetaminophen (Oxycodone/Acetaminophen 5mg/325mg Tab) 1 tab PO Q4H PRN PRN Reason: Moderate Pain (Scale 4, 5, 6) Stop: 03/20/24 17:34 Last Admin: 03/07/24 13:26 Dose: 1 tab Polyethylene Glycol (Polyethylene (Miralax) 17 Gm Pack) 17 gm PO DAILY PRN PRN Reason: Constipation Stop: 04/05/24 17:02 Prednisolone Acetate (Prednisolone Acetate 1% Op Susp 5 Ml Btl) 1 drops OPL QID [facility]AN[facility] Stop: 04/05/24 20:59 Last Admin: 03/07/24 12:25 Dose: Not Given (1) Fall Encounter type: initial encounter Qualified Code(s): W19.XXXA - Unspecified fall, initial encounter (2) Right humeral fracture Encounter type: initial encounter Fracture morphology: unspecified fracture morphology Fracture type: closed Humerus Location: proximal Qualified Code(s): S42.201A - Unspecified fracture of upper end of right humerus, initial encounter for closed fracture
[2024-03-07] MEDS: LACTATED RINGER'S 1,000 ML IV SCH (15:02)
[2024-03-07] MEDS: HEPARIN SOD 5,000 UNIT/0.5 ML VIAL SQ SCH (21:58)
[2024-03-08 07:37] LABS: Hematocrit (blood only) 34.9 % (37.0-47.0); Hemoglobin 11.3 g/dl (12.0-16.0); Mean Corpuscular Hemoglobin 30.1 pg (25.0-34.0); Mean Corpuscular Hgb Conc 32.4 g/dL (32.0-36.0); Mean Corpuscular Volume 93.1 fL (80.0-100.0); Mean Platelet Volume 10.1 fL (9.4-12.4); Platelet Count 226 K/uL (130-400); RDW Coefficient of Variation 13.6 % (11.5-14.5); RDW Standard Deviation 46.1 fL (36.4-46.3); Red Blood Count 3.75 M/uL (4.20-5.40); White Blood Count 8.76 K/ul (4.8-10.8)
[2024-03-08 07:50] LABS: BUN Creatinine Ratio 22.4 (10-20); Calcium 8.8 mg/dl (8.6-10.3); Creatinine Clr Calc Pharmacy 49.7 ml/min; Potassium 3.9 mmol/L (3.5-5.1)
[2024-03-08 14:26] VITALS: BP 129/72; PULSE 62; RESP 18; TEMP 98.6; O2SAT 93
--- NOTE | 2024-03-08 14:51 | Discharge Summary ---
Date of Service March 08, 2024 Admission HPI Per Admitting Provider Vianney Serrato is a 63y/o F with PMHx significant for acquired hypothyroidism, pulmonary nodule, severe LAYA on CPAP, COPD, cardiac conduction system disease s/p pacemaker placement, chronic morbid obesity, chronic BLE venous insufficiency, leukocytoclastic vasculitis, chronic heart failure with preserved ejection fraction, HTN, dyslipidemia, constipation, CKD stage III, BLE lymphedema, osteoarthritis and anxiety who presented to the ED via EMS for evaluation of right shoulder pain after sustaining a fall. History obtained from patient and associated chart review. Patient reports that she was walking out of her house to go to a doctor's appointment earlier today when she accidentally tripped and fell down 2 concrete steps out in front of her house. She landed mostly on her right shoulder region and also struck the right side of her head off of the concrete. No loss of consciousness with his head trauma. Did however sustain a bruise to the right part of her scalp and a skin tear/wound on the palmar region of her left hand as she tried to use this arm to help ease the fall. She was unable to get up off of the ground, even with the assistance of her , therefore EMS was called. Patient was going to see her PCP today due to an ongoing cough for about a week or so. Patient reports that she has been producing some yellowish/greenish sputum as well. She mentions that she had a bout of chills and body aches last in addition to one episode of diarrhea, but that has since resolved. She also had an isolated episode of vomiting last Tuesday evening. No reported fevers at home. She has not been taking anything [id number] for the symptoms. Denies any SOB, chest pain, abdominal pain or urinary habit changes. Admission Exam Per Admitting Provider General: Obese, vitals as above, NAD, laying down in bed, very pleasant, conversing appropriately. A+Ox3, euthymic affect. HEENT: Normocephalic, small contusion on the R forehead region. PERRL, conjunctivae normal, oropharynx normal. Respiratory: Normal respiratory effort, lungs clear to auscultation, no wheeze, rales, rhonchi. No accessory muscle use. Cardiovascular: Regular rate, rhythm, no murmur, normal peripheral pulses, BLE lymphedema. Vessels: No JVD. Abdomen/GI: Normal bowel sounds, soft, nontender, no hepatosplenomegaly. Extremities/Musculoskeletal: No cyanosis or clubbing, very limited mobility of the RUE, very tender to palpation of R shoulder region. Neurologic: EOMI, no focal deficits, CN's II-XI not formally tested but appear grossly intact bilaterally. Skin: No rashes, normal color, warm/dry. Bandaged skin tear over the palmar aspect of the L hand. Principal Diagnosis Right humerus fracture Discharge Exam Gen: WD/WN, obese, F NAD, A&O x3 HEENT: Normocephalic, atraumatic, conjunctivae moist, sclerae anicteric, mucous membranes moist. Lung: Clear to Auscultation bilaterally, no wheezes/rales/rhonchi Heart: Regular rate, regular rhythm, no murmurs, rubs, or gallops Abdomen: Soft, NT, ND +BS x 4 Extremities:obese lower ext, RUE in sling, NVI distally Skin: Warm, no rash, negative turgor. Discharge Data Allergies Allergy/AdvReac Type Severity Reaction Status Date / Time cefazolin [From Ancef] Allergy Severe Swelling Verified 02/22/24 10:37 of Lip/Tongue/Throat sulfamethoxazole Allergy Severe throat Verified 02/22/24 10:37 [From Bactrim] swelling trimethoprim [From Bactrim] Allergy Severe throat Verified 02/22/24 10:37 swelling Consultations 03/06/24 16:19 ED Decision to Admit Stat 03/06/24 16:38 Consult Orthopedic Surgery Routine Ordered Studies 03/06/24 14:13 CT cervical spine wo con Stat CT head/brain wo con Stat Hospital Course (1) Fall: (2) Right humeral fracture: (3) COVID-19: Plan 63y/o F with PMHx significant for acquired hypothyroidism, pulmonary nodule, severe LAYA on CPAP, COPD, cardiac conduction system disease s/p pacemaker placement, chronic morbid obesity, chronic BLE venous insufficiency, leukocytoclastic vasculitis, chronic heart failure with preserved ejection fraction, HTN, dyslipidemia, constipation, CKD stage III, BLE lymphedema, osteoarthritis and anxiety who presented to the ED 03/06 via EMS for evaluation of right shoulder pain after sustaining a fall and was found to have a right humeral head/neck fracture. She was managed for the following: Right Humeral Fracture S/P Fall: Admitting Shoulder XR: Minimally displaced fracture of the right humeral head/neck and associated soft tissue swelling. Orthopedics evaluated, nonsurgical management for now, RUE in sling, follow-up orthopedics in 10 to 14 days with repeat x-ray of the right humerus. PT/OT, ongoing pain management. Will need rehab. History of hypertension: Hypotensive at presentation, Now improved. Resume blood pressure medications from tomorrow. 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 Respiratory BioFire positive for COVID-19. CT head with paranasal sinus disease. Started on doxycycline 03/06, leukocytosis noted at admission downtrended to nl. Acute on chronic CKD Stage III: baseline creatinine of 1.3-1.5, admitting creatinine of 1.59, patient with poor p.o. intake, creatinine on 03/07 was 1.91 ISO poor p.o. intake/hypotension. Status post IV fluid, creatinine resolved, blood pressure resolved. Other Chronic Medical Conditions: Hypothyroidism, dyslipidemia, gout --> Can continue home medications for these specific conditions. Can also continue her home eye drops, CPAP HS for severe LAYA. DVT Prophylaxis: SQ Heparin Code Status: FULL CODE PCP: Candace Cheema MD Disposition: PT/OT, likely will need rehab. Patient is being discharged to SNF with following instruction at the point of discharge: Follow-up with your primary care physician within a week time and likely you will need labs CBC/CMP/magnesium/phosphorus. Follow-up with orthopedics in 1 to 2 weeks time upon discharge. Take your medications as prescribed. Please make sure that you are able to get your medications today by calling your pharmacy before you leave the hospital so that your treatment continuity is not broken. Home Health Attestation I certify that this patient is under my care and that I, or a physicians chiropractic assistant working with me, had a face to-face encounter that meets the [id number] encounter requirements with this patient. The encounter with the patient was in whole, or in part, for the following medical condition, which is the primary reason for home health care (list medical condition): I certify that, based on my findings, the following services are medically necessary home health services: My clinical findings support the need for the above services because: Further, I certify that my clinical findings support that this patient is homebound (i.e. absences from home require considerable and taxing effort and are for medical reasons or sikh services or infrequently or of short duration when for other reasons) because: Certification for Home Health Services: Based on the above findings, I certify that this patient is confined to the home and needs intermittent ch[facility] care, physical therapy and/or speech therapy or continues to need occupational therapy. The patient is under my care, and I have initiated the establishment of the plan of care. This patient will be followed by a physician who will periodically review the plan of care. Total Time Total Time Spent Total Time Spent (In Minutes): 45 Discharge Plan Discharge Items Patient Disposition: Transfer Intermediate Fac Reason For Visit: R HUMERAL FRACTURE S/P FALL Discharge Diagnosis: Right humerus fracture Condition on Discharge: Fair Activity: Per Instructions section Non-emergency contact: Primary Care Provider Call non-emergency contact if: you have any medication questions, your symptoms worsen, your pain is not controlled and your temperature is above 101 Follow-up/Referrals: Roxane Head PA-C [Physician Videographer] - 03/19/24 11:00 am Candace Cheema MD [Primary Care Provider] - Diet: Heart Healthy Fish Attending Provider Instructions: Follow-up with your primary care physician within a week time and likely you will need labs CBC/CMP/magnesium/phosphorus. Follow-up with orthopedics in 1 to 2 weeks time upon discharge. Take your medications as prescribed. Please make sure that you are able to get your medications today by calling your pharmacy before you leave the hospital so that your treatment continuity is not broken. [employer] Manager In Training Provider Instructions: Orthopedic instructions: Sling the right upper extremity at all times. May loosen the strap around your neck when at rest as needed for comfort. Do not bear any weight on your right arm. May do gentle range of motion of your fingers, wrist, elbow and forearm as tolerated. No heavy pushing, pulling or lifting with your right upper extremity. May use hand for light daily activities such as writing or reading. May be comfortable with head of bed elevated when at home or sleeping in a chair for the next 2 to 4 weeks. Do not do any range of motion of your right shoulder. Follow-up with [facility] orthopedics as scheduled. Call [phone] with any increased pain, swelling, questions or concerns, need to reschedule or confirm your appointment. Pending Studies at Discharge: No Stand-Alone Forms: My [facility] Skilled Items Patient informed of condition?: Yes DNR: No Discharge Level of Care: Skilled Communicable Disease: Yes Discharge Prognosis: Stable Lines: None Urinary Catheter: No Medications and DC Order Prescriptions: New doxycycline hyclate 100 mg Capsule 100 mg PO BID 3 Days Qty: 6 0RF oxycodone-acetaminophen [Percocet] 5-325 mg Tablet 1 tab PO Q8H PRN (Reason: severe pain (scale score 7-10)) 5 Days Qty: 15 0RF guaifenesin [Mucinex] 600 mg Tablet Extended Release 12hr 1,200 mg PO Q12 3 Days Qty: 12 0RF Continued acetaminophen [Tylenol Extra Strength] 500 mg Tablet 1,000 mg PO Q6H PRN (Reason: Pain) citalopram 40 mg tablet 40 mg PO QAM metoprolol succinate 100 mg tablet extended release 24 hr 100 mg PO QAM chlorthalidone 25 mg tablet 25 mg PO QAM Patient Comments: Patient not sure if she takes spironolactone 25 mg tablet 25 mg PO QAM levothyroxine 150 mcg tablet 150 mcg PO QAM atorvastatin 20 mg tablet 20 mg PO QAM potassium chloride 10 mEq tablet,ER particles/crystals 10 meq PO QAM epinephrine [EpiPen 2-Robby] 0.3 mg/0.3 mL auto-injector 0.3 mg IM Q4H PRN (Reason: anaphylaxis) Qty: 1 0RF allopurinol 100 mg tablet 200 mg PO QAM ofloxacin 0.3 % drops 1 drp OPL QID ketorolac 0.5 % drops 1 drp OPL QID prednisolone acetate 1 % drops,suspension 1 drp OPL QID Discharge Orders: Discharge Order (Routine); Ordered 03/08/24 Ordered By: Kemi Cagle Admission Data Admit Date/Time: 03/06/24 16:38 Attending Provider: Kemi Cagle Admit Provider: Isabel Scott Primary Care Provider: Candace Cheema Other Providers: Isabel Scott; Crow Tyler; [facility]
== END 2024-03-08 16:25 | DRG 562 ==
LOC: ED 13:48 → SUATTDRO 16:38 → EDINP 16:38 → 3W 20:50